=== PATIENT | female | born 2005 ===

== ENCOUNTER 2025-05-22 08:33 | Outpatient (AMB) | payer MEDICAID, SELFPAY ==
--- OUTSIDE RECORDS SUMMARY | 2025-05-22 09:05 | XMS_ITS | Encounter Summary ---
Author Organization [employer] Address [address] [place] [address] 7 [place] [address] Care Team Providers Care Pan Greaser Name Role Phone Patricia Bolaños MD Primary Care Provider [phone] Reason for Visit * Reason Onset Date Comments Med Refill 10/20/2022 Encounter Details Date Type Department Care Team ([facility] st Contact Info) Description 10/20/2022 Telephone [facility] CHC MED & PEDS 505 [place], [place] [phone] Patricia Bolaños MD 505 [place] [address] Med Refill Social History Tobacco Use Types Packs/Day Years Used Date Smoking Tobacco: Never Assessed Comments Unknown Sex and Gender Information Value Date Recorded Sex Assigned at Female 07/10/2022 10:18 AM EDT Legal Sex Female 10:18 AM EDT Gender Identity Other 02/01/2023 11:07 AM EDT Sexual Orientation Choose not to disclose 2021 10:18 AM EDT documented as of this encounter Miscellaneous Notes * Telephone Encounter - Kely Farrar - 10/20/2022 11:09 AM EST Tc from mother requesting med refill for medication amphetamine- dextroamphetamine XR (Adderall XR) 25 MG 24 hr capsule. documented in this encounter Plan of Treatment Not on file documented as of this encounter Visit Diagnoses Not on filedocumented in this encounter Care Teams Pan Greaser Relationship Specialty Start Date End Date Patricia Bolaños MD [address] [place] [address] PCP - General Family Medicine 06/06/13 documented as of this encounter
--- OUTSIDE RECORDS SUMMARY | 2025-05-22 09:05 | XMS_ITS | Encounter Summary ---
Author Organization [employer] Address 75 [facility] 7 [place] [address] Care Team Providers Care Blocker Hand Name Role Phone Patricia Bolaños MD Primary Care Provider [phone] Reason for Visit * Reason Onset Date Comments Med Refill 09/04/2023 Encounter Details Date Type Department Care Team ([facility] st Contact Info) Description 09/04/2023 Telephone [facility] CHC MED & PEDS 505 [place], [place] [phone] Patricia Bolaños MD 505 [place] [address] Med Refill Social History Tobacco Use Types Packs/Day Years Used Date Smoking Tobacco: Never Assessed Depression Answer Date Recorded Patient Health Questionnaire-9 Score 17 02/01/2023 Housing Stability Answer Date Recorded What is your housing situation today? I have louis mcrae 06/28/[address] you li ve. Do you have problems with any of the following? None of the above 06/28/2023 Food Insecurity Answer Date Recorded Within the past 12 months, y ou worried that your food would run out before you got money to buy more: Often true 06/28/2023 Within the past 12 months,th e food you bought just didn't last and you didn't have enough money to get more: Often true Transportation Answer Date Recorded In the past 12 months, has l ack of transportation kept you from medical appts, meetings, work or from getting things needed for daily living? No 06/28/2023 Utilities Answer Date Recorded In the past 12 months, has t he electric, gas, oil or water company threatened to shut off services in your home? No 06/28/2023 Depression Answer Date Recorded Patient Health Questionnaire-2 Score 4 02/01/2023 Comments Unknown Sex and Gender Information Value Date Recorded Sex Assigned at Female 07/10/2022 10:18 AM EDT Legal Sex Female 10:18 AM EDT Gender Identity Other 02/01/2023 11:07 AM EDT Sexual Orientation Choose not to disclose 2021 10:18 AM EDT documented as of this encounter Miscellaneous Notes * Telephone Encounter - Ana Garcia - 09/04/2023 2:10 PM EST TC from pt requesting medication refill. Medications needing refill : amphetamine-dextroamphetamine XR (Adderall XR) 25 MG 24 hr capsule To be sent to: [facility] - [place], [place] - [address] documented in this encounter Plan of Treatment Not on file documented as of this encounter Visit Diagnoses Not on filedocumented in this encounter Additional Health Concerns Assessment Noted Time PHQ-9 Depression Total Score: 17 023 11:26 AM EDT documented as of this encounter Care Teams Blocker Hand Relationship Specialty Start Date End Date Patricia Bolaños MD [address] [place] [address] PCP - General Family Medicine 06/06/13 documented as of this encounter
--- OUTSIDE RECORDS SUMMARY | 2025-05-22 09:05 | XMS_ITS | Encounter Summary ---
Author Organization [employer] Address 75 [facility] 7 [place] [address] Care Team Providers Care Decating Machine Operator Name Role Phone Patricia Bolaños MD Primary Care Provider [phone] Reason for Visit * Reason Onset Date Comments Med Refill 10/04/2023 Encounter Details Date Type Department Care Team ([facility] st Contact Info) Description 10/04/2023 Telephone [facility] CHC MED & PEDS 505 [place], [place] [phone] Patricia Bolaños MD 505 [place] [address] Med Refill Social History Tobacco Use Types Packs/Day Years Used Date Smoking Tobacco: Never Assessed Depression Answer Date Recorded Patient Health Questionnaire-9 Score 17 02/01/2023 Housing Stability Answer Date Recorded What is your housing situation today? I have louis mrcae 06/28/[address] you li [...] * Telephone Encounter - Ana Garcia - 10/04/2023 1:54 PM EST TC from pt requesting medication refill. Medications needing refill : amphetamine-dextroamphetamine XR (Adderall XR) 25 MG 24 hr capsule To be sent to: [facility] - [place], [place] - [address] documented in this encounter Plan of Treatment Not on file documented as of this encounter Visit Diagnoses Not on filedocumented in this encounter Additional Health Concerns Assessment Noted Time PHQ-9 Depression Total Score: 17 023 11:26 AM EDT documented as of this encounter Care Teams Decating Machine Operator Relationship Specialty Start Date End Date Patricia Bolaños MD [address] [place] [address] PCP - General Family Medicine 06/06/13 documented as of this encounter
--- OUTSIDE RECORDS SUMMARY | 2025-05-22 09:05 | XMS_ITS | Encounter Summary ---
Author Organization [employer] Address [address] [place] [address] 7 [place] [address] Care Team Providers Care Occupational Therapist Assistant Name Role Phone Patricia Bolaños MD Primary Care Provider [phone] Reason for Visit * Reason Comments Med Refill Encounter Details Date Type Department Care Team ([facility] st Contact Info) Description 06/05/2023 Refill [facility] CHC MED & PEDS 505 [place], [place] [phone] Patricia Bolaños MD 505 [place] [address] Attention deficit hyperactivity disorder (ADHD), predominantly inattentive type Social History Tobacco Use Types Packs/Day Years Used Date Smoking Tobacco: Never Assessed Depression Answer Date Recorded Patient Health Questionnaire-9 Score 17 02/01/2023 Depression Answer Date Recorded Patient Health Questionnaire-2 Score 4 02/01/2023 Comments Unknown Sex and Gender Information Value Date Recorded Sex Assigned at Female 07/10/2022 10:18 AM EDT Legal Sex Female 10:18 AM EDT Gender Identity Other 02/01/2023 11:07 AM EDT Sexual Orientation Choose not to disclose 2021 10:18 AM EDT documented as of this encounter Plan of Treatment Not on file documented as of this encounter Visit Diagnoses Diagnosis Attention deficit hyperactivity disorder (ADHD), predominantly inattentive type documented in this encounter Additional Health Concerns Assessment Noted Time PHQ-9 Depression Total Score: 17 023 11:26 AM EDT documented as of this encounter Care Teams Occupational Therapist Assistant Relationship Specialty Start Date End Date Patricia Bolaños MD 505 [place] [address] PCP - General Family Medicine 06/06/13 documented as of this encounter
--- OUTSIDE RECORDS SUMMARY | 2025-05-22 09:05 | XMS_ITS | Encounter Summary ---
Author Organization [employer] Address 75 [facility] 7t [place] [address] Care Team Providers Care Hoop Rolls Operator Name Role Phone Patricia Bolaños MD Primary Care Provider Reason for Visit * Reason Comments Med Refill Encounter Details Date Type Department Care Team ([facility] st Contact Info) Description 12/05/2023 Refill [facility] MEDICINE 230 [place], [place] [phone] Patricia Bolaños MD 505 [place] [address] Attention deficit hyperactivity disorder (ADHD), predominantly inattentive [...] documented as of this encounter Care Teams Hoop Rolls Operator Relationship Specialty Start Date End Date Patricia Bolaños MD 505 [place] [address] PCP - General Family Medicine 06/06/13 documented as of this encounter
--- OUTSIDE RECORDS SUMMARY | 2025-05-22 09:05 | XMS_ITS | Encounter Summary ---
Author Organization [employer] Address [address] [facility] 7t [place] [address] Care Team Providers Care Show Card Writer Name Role Phone Patricia Bolaños MD Primary Care Provider [phone] Reason for Visit * Reason Comments Med Refill Encounter Details Date Type Department Care Team ([facility] st Contact Info) Description 12/03/2023 Refill [facility] MEDICINE 230 [place] [address] Patricia Bolaños MD 505 [place] [address] Attention deficit hyperactivity disorder (ADHD), predominantly inattentive [...] documented as of this encounter Care Teams Show Card Writer Relationship Specialty Start Date End Date Patricia Bolaños MD 505 [place] [address] PCP - General Family Medicine 06/06/13 documented as of this encounter
--- OUTSIDE RECORDS SUMMARY | 2025-05-22 09:05 | XMS_ITS | Encounter Summary ---
Author Organization [employer] Address 75 [facility] 7t [place] [address] Care Team Providers Care Filter Tender Jelly Name Role Phone Patricia Bolaños MD Primary Care Provider [phone] Encounter Details Date Type Department Care Team ([facility] st Contact Info) Description 06/12/2024 Orders Only [facility] CHC MED & PEDS 505 [place], [place] [phone] Patricia Bolaños MD 505 [place], [place] [phone] Social History Tobacco Use Types Packs/Day Years [...] documented as of this encounter Care Teams Filter Tender Jelly Relationship Specialty Start Date End Date Patricia Bolaños MD [address] [place] [address] PCP - General Family Medicine 06/06/13 documented as of this encounter
--- OUTSIDE RECORDS SUMMARY | 2025-05-22 09:05 | XMS_ITS | Clinical Summary ---
Author Organization [employer] Address [address] [facility] 7t [place] [address] Care Team Providers Care Band Bias Machine Operator Name Role Phone Patricia Bolaños MD Primary Care Provider Allergies Active Allergy Reactions Criticality Noted Date Comments Oxcarbazepine Hives High 07/02/2013 Topiramate Hives 12/22/2015 Medications * This document contains information received from the source organization and may not represent a complete record from that organization. ibuprofen 600 MG tablet Take 1 tablet by mouth every 6 (six) hours if needed for pain. 01/20/20 17 Active ergocalciferol (Vitamin D2) 1.25 MG (88868 UT) capsule Take 1 capsule (1.25 mg) by mouth 1 (one) time per week. 12 capsule 02/06/20 23 Active Camrese 0.15-0.03 &0.01 MG tablet tablet TAKE 1 TABLET BY MOUTH EVERY DAY 91 tablet 3 05/08/20 23 Active Bacitracin-Polym yxin B (FT Double Antibiotic) 500-36571 UNIT/GM ointment APPLY TOPICALLY TWICE DAILY 28.4 g 1 10/09/19 25 Active clotrimazole (Lotrimin) 1 % cream APPLY TOPICALLY TWICE DAILY 30 g 1 10/09/19 25 Active amphetamine-dext roamphetamine XR (Adderall XR) 25 MG 24 hr capsuleIndicatio ns:Attention deficit hyperactivity disorder (ADHD), predominantly inattentive type TAKE 2 CAPSULES BY MOUTH EVERY DAY IN THE MORNING 60 capsule 04/28/20 25 Active traZODone (Desyrel) 50 MG tabletIndication s:Primary insomnia TAKE 1 TABLET BY MOUTH AT BEDTIME 30 tablet 3 04/28/20 25 Active traZODone (Desyrel) 50 MG tabletIndication s:Primary insomnia Take 1 tablet (50 mg) by mouth at bedtime. 30 tablet 3 12/03/19 25 025 Discontinued(R eorder (will not trigger notification to Pharmacy)) amphetamine-dext roamphetamine XR (Adderall XR) 25 MG 24 hr capsuleIndicatio ns:Attention deficit hyperactivity disorder (ADHD), predominantly inattentive type TAKE 2 CAPSULES BY MOUTH EVERY DAY IN THE MORNING 60 capsule 03/30/20 25 025 Discontinued(R eorder (will not trigger notification to Pharmacy)) Active Problems Problem Noted Date Diagnosed Date Class 3 severe obesity due t o excess calories without serious comorbidity with body mass index (BMI) of 60.0 to 69.9 in adult 02/25/2025 Assessment & Plan (02/25/2025 9:18 AM EDT): Will refer to bariatric surgery, continue low calorie diet, exercise as tolerated, will order tsh and a1c Attention deficit hyperactivity disorder 013 Bipolar disorder 07/02/2013 Encounters Date Type Department Care Team Description 04/28/2025 Refill [facility] MEDICINE 230 [place] [address] Patricia Bolaños MD Attention deficit hyperactivity disorder (ADHD), predominantly inattentive type; Primary insomnia 03/30/2025 Refill [facility] MED & PEDS 505 [place] [address] Patricia Bolaños MD Attention deficit hyperactivity disorder (ADHD), predominantly inattentive type 02/25/2025 9:00 AM EDT Telemedicine [facility] MED & PEDS 505 [place] [address] Austin Gee MD Weight gain (Primary Dx); Class 3 severe obesity due to excess calories without serious comorbidity with body mass index (BMI) of 60.0 to 69.9 in adult 02/25/2025 Travel 02/24/2025 Refill [facility] MEDICINE [address] [place] [address] Patricia Bolaños MD Attention deficit hyperactivity disorder (ADHD), predominantly inattentive type from Last 3 Months Immunizations Immunization Administration Dates Next Due DTaP, 5 pertussis antigens 09/22/2008,,03/24/2005,01/17,2004 HPV 9-Valent 12/20/2016,07/12/2016 Hep A, ped/adol, 2 dose 12/20/2016,06/02/2015 Hep B, Adolescent or Pediatric 5,01/17/2005,2004,09/09 Hib (HbOC) 06/01/2009, 5,01/17/2005,12/06 IPV 09/22/2008, 5,01/17/2005,12/06 Influenza injectable quadriv alent IIV4 with preservative 08/22/2017 Influenza injectable quadriv alent preservative free 11/08/2018,07/12/2016 MMR 09/22/2008,10/27/2005 Meningococcal MCV4P ACYW-135 07/12/2016 Pneumococcal Conjugate PCV 7 06/01/2006, 03/24/2005,01/17/2005,12/06 Tdap 07/12/2016 Varicella 07/23/2009,10/27/2005 Social History Tobacco Use Types Packs/Day Years [...] not to disclose 2021 10:18 AM EDT Last Filed Vital Signs Vital Sign Reading Time Taken Comments Blood Pressure 130/80 02/01/2023 11:40 AM EDT Pulse 84 02/01/2023 11:15 AM EDT Temperature 37 C (98.6 F) 02/01/2023 11:15 AM EDT Respiratory Rate 20 02/01/2023 11:15 AM EDT Oxygen Saturation 99% 02/01/2023 11:15 AM EDT Inhaled Oxygen Concentration - - Weight 144 kg (318 lb) 02/01/2023 11:15 AM EDT Height 158.8 cm (5' 2.5 ) 02/01/2023 11:15 AM ED T Body Mass Index 57.24 02/01/2023 11:15 AM EDT Plan of Treatment Health Maintenance Due Date Last Done Comments Chlamydia and Gonorrhea Screening 2004 HIV Screening 2004 Disability Screening 2004 Alcohol/Substance Use Screening 2016 Tobacco Screening 2016 Family Planning (PISQ) 2019 Meningococcal B Vaccine (1 of 2 - Standard) 2020 Hepatitis C Screening 2022 Depression Monitoring 08/04/2023 02/01/2023, 023 SDOH Screening 02/02/2024 02/01/2023 COVID-19 Vaccine ( - season) 2025 Influenza Vaccine (#1) 2025 9, 08/22/2017, 07/12/2016 DTaP/Tdap/Td Vaccines (7 - Td or Tdap) 07/12/2026 07/12/2016, 09/22/2008, 06/01/2006, Additional history exists Lipid Panel 02/02/2028 02/01/2023 Zoster Vaccines (1 of 2) 2054 RSV Patients and Patients Aged 60 years or older (1 - 1-dose 75+ series) 2079 Hepatitis B Vaccines Completed 03/24/2005, 01/17/2005, 2004, Additional history exists Pneumococcal Vaccine: Pediatrics (0 to 5 Years) and At-Risk Patients (6 to 49) Years Aged Out 06/01/2006, 03/24/2005, 01/17/2005, Additional history exists No longer eligible based on patient's age to complete this topic IPV Vaccines Completed 09/22/2008, 03/10, 01/17/2005, Additional history exists HIB Vaccines Completed 06/01/2009, 03/10, 01/17/2005, Additional history exists Meningococcal Vaccine Aged Out 07/12/2016 No lucina cassie eligible based on patient's age to complete this topic HPV Vaccines Completed 12/20/2016, 07/12/2016 Hepatitis A Vaccines Completed 12/20/2016, 06/02/20 15 RSV under 20 months Aged Out No longe r eligible based on patient's age to complete this topic Rotavirus Vaccines Aged Out No longer eligible based on patient's age to complete this topic Procedures Procedure Name Priority Date/Time Associated Diagnosis Comments LIPID PANEL, STANDARD Routine 02/01/2023 11:48 AM EDT Obesity without serious comorbidity with body mass index (BMI) greater than 99th percentile for age in pediatric patient, unspecified obesity type from Last 3 Months or Most Recently Relevant to Health Maintenance Results * (ABNORMAL) Lipid Panel, Standard (02/01/2023 11:48 AM EDT) Cholesterol, Total 172(H) <170 mg/dL [facility] [place] [facility] HDL Cholesterol 37(L) >45 mg/dL [facility] [place] [facility] Triglycerides 87 <90 mg/dL [facility] [place] [facility] LDL Cholesterol 116(H) <110 mg/dL (calc) [facility] [place] [facility] Comment: LDL-C is now calculated using the Ronald calculation, which is a validated novel method providing better accuracy than the Friedewald equation in the estimation of LDL-C. Alexi OTERO et al. SHEBA. 2013;310(19): 5821-7208 (http://education.myseekit.[employer]/faq/YZH855) Chol/HDLC Ratio 4.6 <5.0 (calc) [facility] [place] [facility] Non-HDL Cholesterol 135(H) <120 mg/dL (calc) [facility] [place] [facility] Comment: For patients with diabetes plus 1 major ASCVD risk factor, treating to a non-HDL-C goal of <100 mg/dL (LDL-C of <70 mg/dL) is considered a therapeutic option. Blood Venous blood specimen / Unknown 02/01/2023 11:48 AM EDT 02/01/2023 11:49 AM EDT Narrative [facility] - 02/02/2023 8:12 AM EDT FASTING:YES FASTING: YES us Patricia Bolaños MD LAB BLOOD ORDERABLES Final Re sult [facility] [address], [place] [address] [facility] [place] [facility] [address] [place] [address] from Last 3 Months or Most Recently Relevant to Health Maintenance [place] [place] [address] C3 Care Teams Band Bias Machine Operator Relationship Specialty Start Date End Date Patricia Bolaños MD 505 [place] [address] PCP - General Family Medicine 06/06/13
--- OUTSIDE RECORDS SUMMARY | 2025-05-22 09:06 | XMS_ITS | Encounter Summary ---
Author Organization [employer] Address [address] [facility] [address] 7t [place] [address] Care Team Providers Care Client Portfolio Manager Name Role Phone Patricia Bolaños MD Primary Care Provider [phone] Reason for Visit * Reason Onset Date Comments Med Refill 12/31/2024 Encounter Details Date Type Department Care Team ([facility] st Contact Info) Description 12/31/2024 Telephone [facility] MEDICINE 230 [place], [place] [phone] Patricia Bolaños MD 505 [place], [place] [phone] Med Refill Social History Tobacco Use Types [...] encounter Miscellaneous Notes * Telephone Encounter - Kimmy Swenson LPN - 12/31/2024 10:45 AM EDT Medication sent to [facility] on 12/30/24. * Telephone Encounter - Quan Batista - 12/31/2024 10:40 AM EDT TC from pt requesting medication refill. Medications needing refill : amphetamine-dextroamphetamine XR (Adderall XR) 25 MG 24 hr capsule To be sent to: [facility] - [place], [place] [facility] [address] [facility] documented in this encounter Plan of Treatment Not on file documented as of this encounter Visit Diagnoses Not on filedocumented in this encounter Additional Health Concerns Assessment Noted Time PHQ-9 Depression Total Score: 17 023 11:26 AM EDT documented as of this encounter Care Teams Client Portfolio Manager Relationship Specialty Start Date End Date Patricia Bolaños MD 505 [place] [address] PCP - General Family Medicine 06/06/13 documented as of this encounter
--- OUTSIDE RECORDS SUMMARY | 2025-05-22 09:06 | XMS_ITS | Encounter Summary ---
Author Organization [employer] Address 75 [facility] 7t [place] [address] Care Team Providers Care Driver Guard Name Role Phone Patricia Bolaños MD Primary Care Provider [phone] Reason for Visit * Reason Comments Med Refill Encounter Details Date Type Department Care Team ([facility] st Contact Info) Description 12/30/2024 Refill [facility] MEDICINE 230 [place], [place] [phone] Patricia Bolaños MD 505 [place] [address] Attention deficit hyperactivity disorder (ADHD), predominantly inattentive [...] documented as of this encounter Care Teams Driver Guard Relationship Specialty Start Date End Date Patricia Bolaños MD [address] [place] [address] PCP - General Family Medicine 06/06/13 documented as of this encounter
--- OUTSIDE RECORDS SUMMARY | 2025-05-22 09:06 | XMS_ITS | Encounter Summary ---
Author Organization [employer] Address 75 [facility] 7t [place] [address] Care Team Providers Care Animal Chiropractor Name Role Phone Patricia Bolaños MD Primary Care Provider [phone] Encounter Details Date Type Department Care Team ([facility] st Contact Info) Description 02/06/2023 Orders Only [facility] CHC MED & PEDS 505 [place], [place] [phone] Patricia Bolaños MD 505 [place], [place] [phone] Attention deficit hyperactivity disorder (ADHD), predominantly inattentive [...] not to disclose 2021 10:18 AM EDT COVID-19 Exposure Response Date Recorded In the last 10 days, have yo u been in contact with someone who was confirmed or suspected to have Coronavirus/COVID-19? No / Unsure 02/01/2023 10:45 AM EDT documented as of this encounter Plan of Treatment Not on file documented as of this encounter Visit Diagnoses Diagnosis Attention deficit hyperactivity disorder (ADHD), predominantly inattentive type documented in this encounter Additional Health Concerns Assessment Noted Time PHQ-9 Depression Total Score: 17 023 11:26 AM EDT documented as of this encounter Care Teams Animal Chiropractor Relationship Specialty Start Date End Date Patricia Bolaños MD [address] [place] [address] PCP - General Family Medicine 06/06/13 documented as of this encounter
--- OUTSIDE RECORDS SUMMARY | 2025-05-22 09:06 | XMS_ITS | Encounter Summary ---
Author Organization [employer] Address [address] [place] [address] 7 [place] [address] Care Team Providers Care Video Clerk Name Role Phone Patricia Bolaños MD Primary Care Provider Reason for Visit * Reason Comments Med Refill Encounter Details Date Type Department Care Team ([facility] st Contact Info) Description 12/22/2022 Refill [facility] CHC MED & PEDS [address] [place] [address] Patricia Bolaños MD [address] [place] [address] Attention deficit hyperactivity disorder (ADHD), predominantly inattentive [...] predominantly inattentive type documented in this encounter Care Teams Video Clerk Relationship Specialty Start Date End Date Patricia Bolaños MD [address] [place] [address] PCP - General Family Medicine 06/06/13 documented as of this encounter
--- OUTSIDE RECORDS SUMMARY | 2025-05-22 09:06 | XMS_ITS | Encounter Summary ---
Author Organization [employer] Address [address] [place] [address] Care Team Providers Care Medical Recruiter Name Role Phone Patricia Bolaños MD Primary Care Provider [phone] Reason for Visit * Reason Onset Date Comments Med Refill 04/01/2024 Encounter Details Date Type Department Care Team ([facility] st Contact Info) Description 04/01/2024 Telephone [facility] [address] [place], [place] [phone] Patricia Bolaños MD [address] [place], [place] [phone] Med Refill Social History Tobacco Use Types [...] encounter Miscellaneous Notes * Telephone Encounter - Zechariah Lewis - 04/01/2024 12:17 PM EDT TC from pt requesting medication refill. Medications needing refill : amphetamine-dextroamphetamine XR (Adderall XR) 25 MG 24 hr capsule To be sent to: [facility] - [place], [place] - [address] documented in this encounter Plan of Treatment Not on file documented as of this encounter Visit Diagnoses Not on filedocumented in this encounter Additional Health Concerns Assessment Noted Time PHQ-9 Depression Total Score: 17 023 11:26 AM EDT documented as of this encounter Care Teams Medical Recruiter Relationship Specialty Start Date End Date Patricia Bolaños MD [address] [place] [id number] PCP - General Family Medicine 06/06/13 documented as of this encounter
[2025-05-22 16:57] VITALS: BMI 58.5
--- NOTE | 2025-05-22 16:57 | A.OFFVIS_ITS ---
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 The patient has tried to lose weight with self diets and exercise. Wakes up: 12pm, sleeps: 4am [facility] Medical History (Updated 05/22/25 @ 17:02 by Tereso Gay MD) Insomnia ADHD Morbid obesity Surgical History (Updated 05/01/25 @ 14:19 by Belen Tong CMA) No history of previous surgery Family History (Updated 05/01/25 @ 11:53 by Belen Tong CMA) Mother Diabetes Mental health disorder Father No problems noted. Social History (Updated 05/01/25 @ 11:52 by Belen Tong CMA) Alcohol intake: current Alcohol intake frequency: holidays/special occasions only Patient Tobacco Use Status: Never used Tobacco Telehealth Telehealth Telehealth Platform: Telephone Location of provider rendering services: practice address Location of patient: address on file Patient Identification confirmed using: Name, : Yes Telehealth method: voice only Patient verbally consented to treatment: Yes Patient verbally consented to billing insurance company: Yes Patient informed of any privacy concerns related to visit: Yes Minutes spent on Phone/Video with Pt.: 60 Assessment & Plan Assessment & Plan (1) Morbid obesity: Code(s): E66.01 - Morbid (severe) obesity due to excess calories Category: Medical Plan: 1.? Plan for lap sleeve gastrectomy. If diaphragmatic or ventral hernias are present at time of surgery, these will be repaired laparoscopically as well. I emphasized the importance of close follow-up, adherence to instructions and good communication. The surgery does not replace the need to change your lifestlyle which is the cause of the obesity problem. The surgery provides the motivation to try again to change your lifestyle, it reduces the appetite and make the transition to a better lifestyle easier and doubles the amount of weight you would lose compared to doing the lifestyle change without the surgery. You will need to be on a liquid diet with protein shakes for 2 weeks before surgery to maximize weight loss and boost your nutritional status to recover better from surgery and also for the first two weeks after surgery to let the stomach heal before we introduce other foods. After the first 2 weeks we will introduce protein bars and soft foods like scrambled eggs, cottage cheese and yogurt and after the 6th week will introduce meat, fish and cooked vegetables in small amounts. Over time you should be able to eat everything in small amounts. Side effects like nausea, vomiting, heartburn or abdominal pain are not common in the practice unless you are not following in the practice. This operation requires lifetime commitment to following in our practice and communication with me. You will much less weight and experience side effects if you don?t communicate or not following in the practice. Complications are rare and in our practice is about 1/10 of the national average. However, you can develop bleeding that may require transfusion (hasn?t happened for year in the practice), you may from complications (we did not have any deaths in the practice) and infections. Infections are usually a result of breakdown in communication or not understanding or following directions correctly. They are difficult to treat, they can happen during the first 6 weeks, they may require to be in the hospital for weeks or even months, not being able to eat by mouth and you may have drains and surgeries to try and correct the issue. Other risks and complications include possible conversion to an open procedure, leaks, small bowel obstruction, blood clots, cardiac, or pulmonary complications, as nursing home complications such as ulcers, insufficient weight loss and vitamin deficiencies. 2.Nutritional counseling. Start with one premade PREMIER protein (buy at [employer], or [employer], or [employer]) shake (8oz of PREMIER and NOT the whole bottle) at 1pm-3pm, 1 protein bar (16gr Fit Crunch protein bars, buy at [employer] or [employer]) at 4pm-6pm, dinner at 7pm (10 forks of protein and 10 forks of salad/vegetables), another premade PREMIER protein shake (8oz of PREMIER and NOT the whole bottle) at 9pm-11pm, and one more Fit Crunch protein bar after dinner at midnight to 2am and another HALF Fit Crunch bar at 3am-4am So you do 2 protein shakes, 2.5 protein bars and one meal per day. Meal to include lean meat (beef, fish, pork, turkey, chicken), or guinean yogurt, or egg whites, or beans with a salad with olive oil and fruits (berries, pears, apples, kiwi). Avoid salt, breads, potatoes, rice, pasta, desserts. 3. Each shake would be drunk slowly, like coffee in a period of 2 hours. 4. Cut each bar in 4 pieces and eat each piece in 30min ?to make each bar last 2 hours. 5. I emphasized the importance of measuring accurately the food portion and measure it when serving the food in plate 6. The meal portions include 10 full-size forks of meat and 10 full-size forks of salad. You always eat the meat portion but you can replace up to 5 forks for salad/vegetables with rice, potatoes or pasta, or a fruit ?if you like. The less you do it the better weight loss will be. 7. One full-size fork is what it can be scooped on the fork without falling aside and not what can be bit with the fork. Use regular forks like those you find in a typical restaurant. 8.? Please buy the body composition scale we discussed and send me weight measurements as soon as possible and then once a week. Always include your diet and exercise plan. 9. Start walking outside daily, tracking calories with a goal of 300 calories per day, daily. Goal is to burn 2000 calories per week on exercise, which means either 300 calories daily, or 400 calories 5 days per week, or 500 calories 4 days per week, or 650 calories 3 days per week. 10. The best choice would be to purchase a stationary bike, elliptical or treadmill at home that can track calories. Let me know if you do so I can give you an exercise plan. 11.?It is important of avoiding and for at least 18 months postoperatively and has been discussed at the infosession. 12. Goal is to lose at least 1.5-2lbs per week 13. Goal to lose 10% of your weight before surgery, which is about 30lbs. Ultimate weight goal: 300lbs before surgery 14. Please follow the diet plan exactly without any change. If you don't like something about the plan or you feel hungry you need to communicate with me so I can help you revise the plan. You should not change the plan yourself 15. To be scheduled for EGD to assess the stomach's anatomy. The possibility of biopsies was discussed. Patient needs to avoid use of NSAIDs and aspirin for 1 week prior to EGD. You must be on liquids only the day before your endoscopy. Risks of perforation and bleeding was discussed with the patient. This will be an outpatient procedure with IV sedation. 16. As of tomorrow, please send me a picture of your meal plate after you measure it, but before you consume it. 17. Due to the potential counteraction with Adderall, I will start the patient at the lower 15mg of Phentermine. We discussed the potential side-effects of the Phentermine such as irritability, dry mouth, difficulty sleeping, dizziness, numbness in feet and high blood pressure. I asked her to get a blood pressure monitor and measure the blood pressure daily in the morning and evening. She needs to send the blood pressure readings daily and to call the office for blood pressure over 140/80 and she understands that. 18. Try to put an alarm to wake up at 9am, regardless of what you fall asleep at night and without napping in the afternoon, so you can start going to sleep earlier at night. Orders: Orders H Pylori Breath Test Today E66.01 - Morbid (severe) obesity due to excess calories Complete Blood Count Auto Diff Today E66.01 - Morbid (severe) obesity due to excess calories Lipid Panel Today E66.01 - Morbid (severe) obesity due to excess calories IRON PROFILE Today E66.01 - Morbid (severe) obesity due to excess calories Comprehensive Met. Panel Today E66.01 - Morbid (severe) obesity due to excess calories C Reactive Protein Today E66.01 - Morbid (severe) obesity due to excess calories Vitamin B1 Today E66.01 - Morbid (severe) obesity due to excess calories Vitamin A Today E66.01 - Morbid (severe) obesity due to excess calories TSH reflex Free T4 Today E66.01 - Morbid (severe) obesity due to excess calories Ferritin Today E66.01 - Morbid (severe) obesity due to excess calories XR chest 2V Today E66.01 - Morbid (severe) obesity due to excess calories ECG 12 lead EKG Today E66.01 - Morbid (severe) obesity due to excess calories Insulin Today E66.01 - Morbid (severe) obesity due to excess calories Hemoglobin A1c Today E66.01 - Morbid (severe) obesity due to excess calories Vitamin B12 and Folate Today E66.01 - Morbid (severe) obesity due to excess calories Zinc Today E66.01 - Morbid (severe) obesity due to excess calories Vitamin D 25-OH Total Today E66.01 - Morbid (severe) obesity due to excess calories US abdomen comp w elastography Today E66.01 - Morbid (severe) obesity due to excess calories FL upper GI w air Today E66.01 - Morbid (severe) obesity due to excess calories Referrals Behavioral Health Referral E66.01 - Morbid (severe) obesity due to excess calories Nutrition/Dietitian Referral E66.01 - Morbid (severe) obesity due to excess calories Medications: New phentermine must administer 2 hours after breakfast 15 mg PO DAILY 30 caps 0RF E66.01 - Morbid (severe) obesity due to excess calories
== END 2025-05-22 17:15 | disposition home or self-care (01) ==
LOC: HO.HBS 08:33
PROVIDERS: PCP Pediatrics; Visit Provider Surgery
DX: E66.01 Morbid (severe) obesity due to excess calories (principal); Z68.43 Body mass index [BMI] 50.0-59.9, adult
CPT/HCPCS: 99205

== ENCOUNTER 2025-06-04 09:31 | Outpatient (REF) | payer MEDICAID, SELFPAY ==
--- NOTE | ~2025-06-04 | XR_ITS ---
EXAMINATION: XR CHEST 2 VIEWS HISTORY: E66.01 - Morbid (severe) obesity due to excess calories COMPARISON: There are no prior studies available for comparison. FINDINGS: PA and lateral views of the chest are submitted. The lungs are expanded and clear. There is no pleural effusion, pneumothorax, or pulmonary vascular congestion. The heart is normal in size. The bones are intact. XR/XR chest 2V IMPRESSION: Normal examination of the chest. Electronically signed by: Ronal Rbiera MD 06/04/2025 10:26 AM EDT
[2025-06-04 09:48] LABS: MANUAL DIFF FLAG NO
[2025-06-04 09:56] LABS: Hematocrit 39.3 % (37.0-47.0); Hemoglobin 12.5 g/dl (12.0-16.0); Imm Gran Abs Auto 0.02 X10*3/uL (0.00-0.03); Imm Gran Pct Auto 0.3 % (0.0-0.4); Lymphocytes Absolute Auto 1.9 X10*3/uL (1.2-4.9); Mean Corpuscular HGB Conc 31.8 g/dl (31.0-35.0); Mean Corpuscular Hemoglobin 24.6 pg (27.0-33.0); Mean Corpuscular Volume 77.2 fL (80.0-98.0); NRBC Abs Auto 0.000 X10*3/uL (0.0-0.012); NRBC Pct Auto 0.0 /100WBC (0.0-0.2); Platelet Count 359 X10*3/uL (160-400); Red Blood Count 5.09 X10*6/uL (4.20-5.50); White Blood Count 6.1 X10*3/uL (4.8-10.8)
--- NOTE | 2025-06-04 09:59 | ECG_ITS ---
Test Reason : e66.01 Blood Pressure : */* mmHG Vent. Rate : 68 BPM Atrial Rate : 68 BPM P-R Int : 144 ms QRS Dur : 82 ms QT Int : 400 ms P-R-T Axes : 14 53 13 degrees QTcB Int : 425 ms Normal sinus rhythm with sinus arrhythmia Normal ECG No previous ECGs available Referred By: Tereso Gay Electronically Signed By: Jama Cassidy
[2025-06-04 10:33] LABS: Alanine Aminotransferase 22 U/L (0-31); Albumin Level 4.4 g/dL (3.5-5.0); Alkaline Phosphatase 61 U/L (39-117); Anion Gap 11 (12-20); Aspartate Amino Transferase 18 U/L (5-31); Blood Urea Nitrogen 13 mg/dL (9-16); Calcium 9.4 mg/dL (8.4-10.2); Carbon Dioxide 28 mmol/L (22-29); Chloride 107 mmol/L (96-108); Cholesterol 168 mg/dL (<200); Estimated Glomerular Filt Rate > 60; HDL Cholesterol 27 mg/dL (>40); Iron 47 mcg/dL (30-160); Percent Iron Saturation 18 % (15-50); Potassium 3.8 mmol/L (3.3-5.1); Sodium 142 mmol/L (135-145); Total Iron Binding Capacity 256 mcg/dL (228-428); Total Protein 7.9 g/dL (6.5-8.0); Triglycerides 96 mg/dL (<150); Unsaturated Iron Binding 209 ug/dL
[2025-06-04 10:59] LABS: Ferritin 87 ng/mL (10-122)
[2025-06-04 11:03] LABS: Folate 10.1 ng/mL (> or = 4.0); Vitamin B12 399 pg/mL (200-900)
== END 2025-06-04 09:32 | disposition home or self-care (01) ==
LOC: HO.XRAY 09:31
PROVIDERS: Internal Medicine; PCP Pediatrics; Visit Provider Surgery
DX: E66.01 Morbid (severe) obesity due to excess calories (principal)
CPT/HCPCS: 36415; 71046; 80053; 80061; 82306; 82607; 82728; 82746; 83036; 83525; 83540; 84425; 84443; 84590; 84630; 85025; 86140; 93005

== ENCOUNTER → 2025-06-04 09:59 | Outpatient (BNV) | payer MEDICAID, SELFPAY | PROVIDERS: PCP Pediatrics; Visit Provider Internal Medicine Cardiovascular Disease | DX: E66.01 Morbid (severe) obesity due to excess calories (principal); Z68.43 Body mass index [BMI] 50.0-59.9, adult | CPT/HCPCS: 93010 ==

== ENCOUNTER → 2025-06-04 10:06 | Outpatient (BNV) | payer MEDICAID, SELFPAY | PROVIDERS: PCP Pediatrics; Visit Provider Radiology Diagnostic Radiology | DX: E66.01 Morbid (severe) obesity due to excess calories (principal) | CPT/HCPCS: 71046 ==

== ENCOUNTER 2025-07-02 11:45 | Day surgery (SDC) | payer MEDICAID, SELFPAY ==
[2025-06-30 08:01] VITALS: BMI 58.5
--- NOTE | 2025-06-30 12:53 | HO.ANESPROP2 ---
Documented by User: Therese Yu NP 06/30/25 12:53 HPI - Anesthesia Eval Consult details Narrative: 19yo F for Upper Endoscopy BMI 58 PMFSH Active Problems Active Problems: All Active Problems Hypersomnolence (Acute) Iron deficiency (Acute) Vitamin B12 deficiency (Acute) Vitamin D deficiency (Acute) Insomnia (Acute) ADHD (Acute) Morbid obesity (Acute) Past Medical History Medical History Insomnia ADHD Morbid obesity Family History Family History Mother Diabetes Mental health disorder Father No problems noted. Surgical History Surgical History No history of previous surgery Social History Social History Are you a primary healthcare architect to a significant other at home: No Do you presently have visiting nurse or other home services: No Alcohol intake: current Alcohol intake frequency: does not drink Patient Tobacco Use Status: Never used Tobacco Second Hand Smoke Exposure: No Meds Allergies Allergy/AdvReac Type Severity Reaction Status Date / Time oxcarbazepine (From Allergy Unknown HIVES Verified 05/22/25 16:59 TRILEPTAL) Home Medications ?Medication ?Instructions ?Recorded ?Confirmed ?Last Taken ?Type dextroamphetamine-amphetamine 10 10 mg PO DAILY 05/01/25 06/30/25 Unknown History mg tablet (Adderall) trazodone 50 mg tablet 50 mg PO BEDTIME PRN Insomnia 05/01/25 06/30/25 Unknown History Exam Height,Weight and Vital Signs: Height 5 ft 3 in Weight 149.685 kg Assessment and Plan Assessment Anesthesia Assessment: Chart Reviewed Documented by User: Lyla Madrigal MD 07/02/25 13:43 PMFSH Past Medical History Medical History Insomnia ADHD Morbid obesity Family History Family History Mother Diabetes Mental health disorder Father No problems noted. Surgical History Surgical History No history of previous surgery History of Problems with Anesthesia: No Social History Social History Are you a primary healthcare architect to a significant other at home: No Do you presently have visiting nurse or other home services: No Alcohol intake: current Alcohol intake frequency: does not drink Patient Tobacco Use Status: Never used Tobacco Second Hand Smoke Exposure: No Meds Allergies Allergy/AdvReac Type Severity Reaction Status Date / Time oxcarbazepine (From Allergy Unknown HIVES Verified 05/22/25 16:59 TRILEPTAL) Home Medications ?Medication ?Instructions ?Recorded ?Confirmed ?Last Taken ?Type dextroamphetamine-amphetamine 10 10 mg PO DAILY 05/01/25 06/30/25 Unknown History mg tablet (Adderall) trazodone 50 mg tablet 50 mg PO BEDTIME PRN Insomnia 05/01/25 06/30/25 Unknown History Exam Airway Mallampati Class: III TM Dist: >3cm Neck ROM: Full Loose/Missing/Broken Teeth: No Heart: RRR Lungs: CTA Assessment and Plan Assessment Anesthesia Assessment: Anesthesia Plan Discussed Final Anesthetic Review History of Problems with Anesthesia: No NPO: Yes ASA Class: III Final Preanesthetic Review: Meds/Allgs Chart Reviewed, Consent Obtained/Reviewed and Anes Risks/Benef Reviewed Patient Risk: Intermediate Procedure Risk: Intermediate Anesthetic Plan Anesthetic Plan: MAC: Disposition: Standard PACU
[2025-07-02 12:07] VITALS: BP 150/90; PULSE 103; RESP 18; TEMP 37.4; O2SAT 98
[2025-07-02] MEDS: Lactated Ringers 1,000 ML 80 ML IVCONT (12:25)
[2025-07-02 12:32] LABS: UPreg QC Valid YES
--- NOTE | 2025-07-02 13:03 | MHC.SHP ---
Pre-Procedural Eval Section A - 24 Hr Update-Section A only Date of Service: 07/02/25 The patient is an INPATIENT: No The patient has been examined within 24 hours of the surgical procedure. The History & Physical has been completed within 30 days and I have reviewed it.: Yes Section B - Complete if H&P > 30 days Chief Complaint: Morbid (severe) obesity due to excess calories Relevant Family History (Specify if Yes): No Relevant Social History: None Present Medications: None Medical History: No relevant PMH History of Previous Operations: No relevant previous surgery Allergies: Allergies Allergy/AdvReac Type Severity Reaction Status Date / Time oxcarbazepine (From Allergy Unknown HIVES Verified 05/22/25 16:59 TRILEPTAL) Review of Systems Sugical H&P ROS: Negative: Constitution, Cardiovascular, Respiratory, Neurological, Psychiatric, Hem-Onc, Allergic/Immunologic, Gastrointestinal, Genitourinary, Musculoskeletal, Integumentary, Endocrine and Eyes/Ears/Nose/Throat Exam Surgical H&P Exam: Normal: HEENT, Normal: Heart, Normal: Lungs, Normal: Extremities, Normal: Abdomen, Normal: Skin and Normal: Neurological Plan Diagnosis/Plan: Unchanged (EGD to assess the stomach's anatomy. Risks of bleeding and perforation were discussed with the patient and she is in agreement with the plan.) I have reviewed the history and physical and performed a pertinent physical examination on my patient. No changes have occurred unless specified. Time Spent With Patient Time: Total time managing care of this patient today ____ minutes.
--- NOTE | 2025-07-02 13:05 | PM.OP ---
Brief Operative Note Date of Service: 07/02/25 Pre-op diagnosis: Morbid obesity Post-op diagnosis: same Procedure: PROCEDURE DATE: 07/02/2025 PREOPERATIVE DIAGNOSIS: Morbid obesity POSTOPERATIVE DIAGNOSIS: ?Same as above. PROCEDURE: Blwsszeg-ogktfl-frmrysynyjzl with biopsies Surgeon: ?Anthony Gay M.D.. Ph.D. Fisher Purse Seine: None ? Anesthesia: IV sedation Estimated blood loss: ?Minimal FINDINGS AND PROCEDURE: ? OPERATIVE INDICATIONS: ?The patient is a 19 year old female known to me who is interested in bariatric surgery. Based on this information I recommended an upper endoscopy to evaluate the patient's symptoms. Risks and complications of the surgery were discussed with the patient in advance particularly the possibility of perforation or bleeding that may require surgical intervention. The patient understood the risks and was in agreement with the plan. ? PROCEDURE: After informed consent was obtained by the patient, the patient was ?transferred to the Operating Room and was placed in the supine position.? After successful induction of IV sedation, a mouth block was inserted and the patient was placed in the left lateral decubitus position. An upper endoscopy was performed next, the oropharynx and esophagus appeared within the normal limits. There was no hiatal hernia. The z-line was smooth. Two biopsies were obtained from the distal esophagus 2-3 cm proximal to the GE junction and two additional biopsies from the GE junction. The stomach was entered and it appeared to be of normal size. There was no gastritis. There was no stricture or ulcer. A biopsy was obtained from the gastric fundus and the antrum. No significant bleeding was noted from any of the biopsy sites. Retroflexion of the scope confirmed the presence of a normal GE junction. The scope was then advanced into the duodenum which appeared to be normal as well. At that point the duodenum ?and the stomach were decompressed and the scope was withdrawn from the patient's mouth. The patient extubated and was transferred in stable condition to the Recovery Room for further care. I was present and performed all steps of the procedure. There were no residents to assist with this case. Anthony Gay M.D., Ph.D. Surgeon: Tereso Gay MD Anesthesia: MAC Was an Fisher Purse Seine used for this Procedure?: No Estimated blood loss (mL): 0 IV fluids (mL): 400 Urine output (mL): 0 (No Bobo to record output) Pathology: other (1) antrum x1, 2) fundus x1, 3) GE junction x2, 4) distal esophagus x2) Condition: stable Disposition: PACU
[2025-07-02 13:56] VITALS: BP 114/62; PULSE 84; RESP 18; TEMP 36.2; O2SAT 100
[2025-07-02 14:11] VITALS: BP 116/72; PULSE 76; RESP 20; O2SAT 97
[2025-07-02 14:25] VITALS: BP 126/90; PULSE 77; RESP 20; TEMP 36.5; O2SAT 95
== END 2025-07-02 14:59 | disposition home or self-care (01) ==
PROVIDERS: Nurse Practitioner; PCP Pediatrics; Visit Provider Surgery
PROC: 0DJ08ZZ Inspection of Upper Intestinal Tract, Via Natural or Artificial Opening Endoscopic (ICD-10-PCS; CPT 43235; principal; 2025-07-02 13:20)
DX: E66.01 Morbid (severe) obesity due to excess calories (principal); Z68.43 Body mass index [BMI] 50.0-59.9, adult; G47.00 Insomnia, unspecified; F90.9 Attention-deficit hyperactivity disorder, unspecified type; Z79.899 Other long term (current) drug therapy; Z88.8 Allergy status to other drugs, medicaments and biological substances
CPT/HCPCS: 43239; 81025; 88305; 88313; 88342; J2003; J2704

== ENCOUNTER → 2025-07-02 11:45 | Outpatient (BNV) | payer MEDICAID, SELFPAY | PROVIDERS: PCP Pediatrics; Visit Provider Surgery | DX: E66.01 Morbid (severe) obesity due to excess calories (principal); Z68.43 Body mass index [BMI] 50.0-59.9, adult | CPT/HCPCS: 43239 ==

== ENCOUNTER 2025-07-22 12:59 | Outpatient (AMB) | payer OTHER, SELFPAY ==
--- NOTE | 2025-07-22 13:00 | A.OFFWM_ITS ---
Intake Intake Visit Reasons: OV BH Intake Allergies oxcarbazepine (From TRILEPTAL) Allergy (Unknown, Verified 05/22/25 16:59) [facility] Medical History Insomnia ADHD Morbid obesity Surgical History No history of previous surgery Family History Mother Diabetes Mental health disorder Father No problems noted. Social History Are you a primary customer care consultant to a significant other at home: No Do you presently have visiting nurse or other home services: No Alcohol intake: current Alcohol intake frequency: does not drink Patient Tobacco Use Status: Never used Tobacco Second Hand Smoke Exposure: No Behavioral Health Assessment Weight Management Therapy Therapy Notes Details The patient is a 19-year-old female presenting for initial appointment to start behavioral health assessment as part of her preoperative evaluation for a surgical weight loss program. She was initially referred by her primary care provider. Presenting Concerns Referral Source WMP-Provider. Reason for referral Completion of behavioral health assessment as part of process for weight-loss surgery. Precipitating Event Obesity. Living Situation Current Living Situation Relative's/Guardian's [place] and Rent At risk of losing current housing? No Satisfied with current living situation? Yes Comments PT lives with her parents and 22 y/o sisters. Also 2 dogs and 2 cats. Social History Family history and relationship PT is single and have no children, she lives with her parents and older sister. PT is close to her family, but they're not close to any extended family. PT was in foster care at age 12 and younger. Parental/Familial print color operator obligations None. Developmental history and status Dyslexia and ADD, was on Adderall. She had an IEP during school. Continues taking Adderall. Social support Parents, sister. Community support None. Presybeterian/Spirituality None. Cultural/Ethnic information Mixed, dad Micronesian and black, and mom mixed and while. Legal Involvement and History Current or historical involvement with the legal system? None reported. Education Highest grade completed 9th grade. Preferred learning style Auditory Currently enrolled in educational program? No Interested in further educational program? Yes (Wants to get [employer].) Educational Interests/Skills Would like to get a job but first wants to work on control her Anxiety. Employment Employment Status Unemployed Wants help to find employment? No Meaningful activities Play videogames, working out. Financial Situation Describe current financial situation Occasional struggle Financial assistance? Food [place] and Disability Service Service? No Mental Health and Addiction Treatment Current/Past substance abuse? No Comments Alcohol: Haven't drink since January. Only on special occasions, 1-2 times at year. Cigarettes/Tobacco: None. Cannabis/Edibles: Edibles once in a while for sleep. Current/Past addictive behavior concerns? No Psychiatric history The patient is not currently engaged in counseling. She previously received mental health treatment until age 16, with diagnoses of depression, anxiety, sleep disturbances, and a history of ADD. She reports a prior psychiatric hospitalization during childhood but does not recall the specific age. The patient endorses ongoing memory difficulties. Her current psychiatric medications, prescribed by her primary care provider, Adderall 10 mg and trazodone 50 mg at bedtime. Medical and Physical Health Summary Additional Medical History not covered in history None aditional. Sexual History concerns None reported. Physical exam in the last year? No Pain Screening Current pain? No Pain in the last few months? Yes (Random knee pain.) Medications Is the patient compliant with medications? Yes Does the patient have Jama Guardian in place? Not applicable Does the patient use complimentary health approaches? No Assessment & Plan Assessment & Plan (1) ADHD: Code(s): F90.9 - Attention-deficit hyperactivity disorder, unspecified type (2) Pre-bariatric surgery psychological evaluation: Code(s): Z71.89 - Other specified counseling Plan The patient was not cleared today as the behavioral health assessment remains incomplete. The new patient packet has not yet been scanned; therefore, at the next appointment, the initial PHQ-9 and BES will be reviewed, and a new PHQ-9 will be administered. * Next appointment: 08/14/2025 at 11:00 am (office visit). [place] [address] Psy Diag Eval Patient Type New Diagnoses ADHD F90.9 Pre-bariatric surgery psychological evaluation Z71.89 Time Spent (min) 55
--- OUTSIDE RECORDS SUMMARY | 2025-07-22 15:39 | XMS_ITS | Encounter Summary ---
Author Organization [employer] Address [address] [place] [address] [address] [place] [address] Care Team Providers Care Insurance Investigator Name Role Phone Patricia Bolaños MD Primary Care Provider [phone] Reason for Visit * Reason Onset Date Comments Med Refill 09/04/2023 Encounter Details Date Type Department Care Team ([facility] Contact Info) Description 09/04/2023 Telephone [facility] [address] [place], [place] [phone] Patricia Bolaños MD [address] [place] [address] Med Refill Social History Tobacco Use Types Packs/Day Years Used Date Smoking Tobacco: Never Assessed Depression Answer Date Recorded Patient Health Questionnaire-9 Score 17 02/01/2023 Housing Stability Answer Date Recorded What is your housing situation today? I have louisjose de jesus mcrae 06/28/[address] you [...] Sex Female 10:18 AM EDT Gender Identity Not Listed 02/01/2023 11:07 AM EDT Sexual Orientation Choose not to disclose 2021 10:18 AM EDT documented as of this encounter Miscellaneous Notes * Telephone Encounter - Ana Garcia - 09/04/2023 2:10 PM EST TC from pt requesting medication refill. Medications needing refill : amphetamine-dextroamphetamine XR (Adderall XR) 25 MG 24 hr capsule To be sent to: [facility] - [place], [place] - [address] [facility] documented in this encounter Plan of Treatment Not on file documented as of this encounter Visit Diagnoses Not on filedocumented in this encounter Additional Health Concerns Assessment Noted Time PHQ-9 Depression Total Score: 17 023 11:26 AM EDT documented as of this encounter Care Teams Insurance Investigator Relationship Specialty Start Date End Date Patricia Bolaños MD [address] [place] [address] PCP - General Family Medicine 06/06/13 documented as of this encounter
--- OUTSIDE RECORDS SUMMARY | 2025-07-22 15:39 | XMS_ITS | Encounter Summary ---
Author Organization [employer] Address [address] [facility] [address] [place] [address] Care Team Providers Care Pushcart Peddler Name Role Phone Patricia Bolaños MD Primary Care Provider [phone] Reason for Visit * Reason Onset Date Comments Med Refill 12/31/2024 Encounter Details Date Type Department Care Team ([facility] st Contact Info) Description 12/31/2024 Telephone [facility] [address] [place] [address] Patricia Bolaños MD [address] [place], [place] [phone] Med Refill Social History Tobacco Use Types [...] 12/31/2024 10:45 AM EDT Medication sent to [facility] on 12/30/24. * Telephone Encounter - Quan Batista - 12/31/2024 10:40 AM EDT TC from pt requesting medication refill. Medications needing refill : amphetamine-dextroamphetamine XR (Adderall XR) 25 MG 24 hr capsule To be sent to: [facility] - [place], [place] - [address] [facility] documented in this encounter Plan of Treatment Not on file documented as of this encounter Visit Diagnoses Not on filedocumented in this encounter Additional Health Concerns Assessment Noted Time PHQ-9 Depression Total Score: 17 023 11:26 AM EDT documented as of this encounter Care Teams Pushcart Peddler Relationship Specialty Start Date End Date Patricia Bolaños MD [address] [place] [address] PCP - General Family Medicine 06/06/13 documented as of this encounter
--- OUTSIDE RECORDS SUMMARY | 2025-07-22 15:39 | XMS_ITS | Clinical Summary ---
Author Organization [employer] Address [address] [place] [address] Care Team Providers Care Durability Technician Name Role Phone Patricia Bolaños MD Primary Care Provider [phone] Allergies Active Allergy Reactions Criticality Noted Date Comments Oxcarbazepine Hives High 07/02/2013 Topiramate Hives 12/22/2015 Medications * This document contains information received from the source organization and may not represent a complete record from that organization. ibuprofen 600 MG tablet Take 1 tablet by mouth every 6 (six) hours if needed for pain. 01/20/20 17 Active ergocalciferol (Vitamin D2) 1.25 MG (65045 UT) capsule Take 1 capsule (1.25 mg) by mouth 1 (one) time per week. 12 capsule 02/06/20 23 Active Camrese 0.15-0.03 &0.01 MG tablet tablet TAKE 1 TABLET BY MOUTH EVERY DAY 91 tablet 3 05/08/20 23 Active Bacitracin-Polym yxin B (FT Double Antibiotic) 500-69031 UNIT/GM ointment APPLY TOPICALLY TWICE DAILY 28.4 g 1 10/09/19 25 Active clotrimazole (Lotrimin) 1 % cream APPLY TOPICALLY TWICE DAILY 30 g 1 10/09/19 25 Active traZODone (Desyrel) 50 MG tabletIndication s:Primary insomnia TAKE 1 TABLET BY MOUTH AT BEDTIME 30 tablet 3 04/28/20 25 Active amphetamine-dext roamphetamine XR (Adderall XR) 25 MG 24 hr capsuleIndicatio ns:Attention deficit hyperactivity disorder (ADHD), predominantly inattentive type TAKE 2 CAPSULES BY MOUTH EVERY DAY IN THE MORNING 60 capsule 06/28/20 Active amphetamine-dext roamphetamine XR (Adderall XR) 25 MG 24 hr capsuleIndicatio ns:Attention deficit hyperactivity disorder (ADHD), predominantly inattentive type TAKE 2 CAPSULES BY MOUTH EVERY DAY IN THE MORNING 60 capsule 06/02/20 25 025 Discontinued(R eorder (will not trigger [...] Encounters Date Type Department Care Team Description 06/26/2025 Refill [facility] [address] [place] [address] Patricia Bolaños MD Attention deficit hyperactivity disorder (ADHD), predominantly inattentive type 06/04/2025 Orders Only GENERIC EXTERNAL DATA DEPARTMENT Provider, Generic External Data 06/02/2025 Refill [facility] [address] [place] [address] Patricia Bolaños MD Attention deficit hyperactivity disorder (ADHD), predominantly inattentive type 06/01/2025 Refill [facility] [address] [place] [address] Patricia Bolaños MD Attention deficit hyperactivity disorder (ADHD), predominantly inattentive type 04/28/2025 Refill [facility] [address] [place] [address] Patricia Bolaños MD Attention deficit hyperactivity disorder (ADHD), predominantly inattentive type; Primary insomnia from Last 3 Months Immunizations Immunization Administration [...] 09/22/2008, 06/01/2006, Additional history exists Lipid Panel 06/04/2030 06/04/2025, 02/01/2023 Zoster Vaccines (1 of 2) 2054 [...] Procedure Name Priority Date/Time Associated Diagnosis Comments HEMATOXYLIN AND EOSIN STAIN Routine 07/02/2025 1:44 PM EDT HCG, QL, URINE Routine 07/02/2025 12:00 PM EDT XR CHEST 2 VIEWS Routine 06/04/2025 10:1 5 AM EDT VITAMIN B1 Routine 06/04/2025 9:46 AM EDT VITAMIN A Routine 06/04/2025 9:46 AM EDT ZINC Routine 06/04/2025 9:46 AM EDT VITAMIN B12/FOLATE, SERUM PANEL Routine 06/04/2025 9:46 AM EDT INSULIN Routine 06/04/2025 9:46 AM EDT VITAMIN D,25-OH,TOTAL,IA Routine 06/04/2025 9:46 AM EDT FERRITIN Routine 06/04/2025 9:46 AM EDT LIPID PANEL, STANDARD Routine 06/04/2025 9:46 AM EDT C-REACTIVE PROTEIN Routine 06/04/2025 9: 46 AM EDT IRON AND TOTAL IRON BINDING CAPACITY Routine 06/04/2025 9:46 AM EDT COMPREHENSIVE METABOLIC PANEL Routine 06/04/2025 9:46 AM EDT CBC WITH AUTO DIFFERENTIAL Routine 06/04/2025 9:46 AM EDT TSH W/REFLEX TO FT4 Routine 06/04/2025 9 :46 AM EDT Weight gain HEMOGLOBIN A1C Routine 06/04/2025 9:46 AM EDT Weight gain from Last 3 Months Results * Hematoxylin and Eosin Stain (07/02/2025 1:44 PM EDT) 07/02/2025 1:44 PM EDT 07/03/2025 8:28 AM EDT [facility] - 07/08/2025 11:28 AM EDT ----- ------- Name: Danica Acosta Age/Sex: 19/F : 2005 Unit#: [id number] Attend Dr: Tereso Gay MD Re07/02/25 Status: [facility] Location: [facility] Disch: ----- ------- SPEC : [id number] RECD: 07/03/25 STATUS: YEISON ZAPIEN NUM: [id number] DIEGO: 07/02/251344 SUBM DR: Tereso Gay MD ENTERED: 07/03/25 SP TYPE: Surgical OTHR DR: Patricia Bolaños MD ORDERED: HE Stain/9, Gross Micro L4/4, IHC/2, Special st. 2, H. pylori/2, AB/PAS Diagnosis A. Gastric antrum, biopsy: Gastric body mucosa with focal minimal chronic inactive inflammation; negative for H. pylori, intestinal metaplasia and dysplasia. B. Gastric fundus, biopsy: Gastric fundic mucosa with focal lamina propria hemorrhage and minimal chronic inactive gastritis; negative for H. pylori, intestinal metaplasia and dysplasia. C. Esophagogastric junction, biopsy: Squamous mucosa with minimal spongiosis, mild hyperplasia and intraepithelial eosinophils (up to 9 per high-power field) and columnar mucosa with mild chronic inflammation, consistent with esophagitis; negative for intestinal metaplasia and dysplasia. D. Esophagus, distal, biopsy: Squamous mucosa with rare intraepithelial eosinophils (up to 1 per high-power field) consistent with esophagitis; no columnar mucosa present. Clinical History Pre-Op Dx: Obesity Post-Op Dx: Normal EGD Microscopic Description Microscopic sections reviewed. H. pylori immunostains on B and C are negative. AB/PAS on C is negative for intestinal metaplasia. Controls stain appropriately. Material Received A. Antrum bx B. Fundus bx C. EG junction bx D. Distal esophagus bx Gross Description A. Received in formalin are 2 lawrence 1-2 mm soft tissue fragments, totally submitted in cassette A1. B. Received in formalin is 1 lawrence 3 mm soft tissue fragment, totally submitted in cassette B1. C. Received in formalin are 3 lawrence 1-3 mm soft tissue fragments, totally submitted in cassette C1. D. Received in formalin are 2 lawrence 2 3 mm soft tissue fragments, totally submitted in cassette D1. (JUAN M) CONTINUED ON NEXT PAGE ----- ------- Name: Danica Acosta Age/Sex: 19/F : 2005 Unit#: [id number] Attend Dr: Tereso Gay MD Re07/02/25 Status: [facility] Location: [facility] Disch: ----- ------- SPEC : [id number] RECD: 07/03/25 STATUS: YEISON ZAPIEN NUM: [id number] DIEGO: 07/02/[address] [facility] [address]: Tereso Gay MD ENTERED: 07/03/25 SP TYPE: Surgical OTHR DR: Patricia Bolaños MD ORDERED: HE Stain/9, Gross Micro L4/4, IHC/2, Special st. 2, H. pylori/2, AB/PAS Gross Description (Continued) Excision to formalin time: Immediate; total time in formalin: 12-24 hours Special studies ordered and performed: Immunostain for H. pylori on A1 and B1; AB/PAS stains on C1. IHC S/NG Disclaimer NOTE: Unless otherwise stated, all tissue is formalin-fixed and paraffin-embedded. Some or all of the immunohistochemical tests reported herein may have been developed and their performance characteristics determined by [facility]. They have not been cleared or approved by the U.S. Food and Drug Administration (FDA). However, the FDA has determined that such clearance or approval is not necessary. This laboratory is certified under the Clinical Laboratory Improvement Amendments of 1988 (CLIA) as qualified to perform high complexity clinical laboratory testing. Copies To: Patricia Bolaños MD [address] [place] [address] Tereso Gay MD [facility] [address] [place] [id number] ----- ------- Signed (signature on file) Monique Crews 07/08/25 1128 ----- ------- END OF REPORT Generic External Data Provider LAB BLOOD ORDERAB LES Final Result Performing Organization Address [facility] de Phone Number [facility] [address] [place] [phone] * HCG, Qualitative, Urine (07/02/2025 12:00 PM EDT) [facility] Urine NEGATIVE NEGATIVE [facility] Comment:This test was develo ped to detect early . Falsenegative results may occur after the 5th - 7th week ofpregnancy when using this test method. If clinicallyindicated, consider a serum hCG. 07/02/2025 12:0 0 PM EDT 07/02/2025 12:09 PM EDT us [employer] External Data Provider LAB URINE ORDERAB LES Final Result Performing Organization Address [facility] de Phone Number [facility] [address] [place] [phone] * XR Chest 2 Views (06/04/2025 10:15 AM EDT) Anatomical Region Laterality Modality Chest Radiographic Sherita ging 06/04/2025 10:1 5 AM EDT Narrative 06/04/2025 10:28 AM EDT [address] [address] XRay Report Signed Patient: Danica Acosta MR#: [id number] 0636 : 2005 Acct:[id number] Age/Sex: 19 / F ADM Date: 06/04/25 Loc: [facility] Attending Dr: Tereso Gay MD Ordering Physician: Tereso Gay MD Date of Service: 06/04/25 Procedure(s): XR chest 2V Accession Number(s): [id number] cc: Patricia Bolaños MD; Tereso Gay MD Reason for Exam: E66.01 - Morbid (severe) obesity due to excess calories EXAMINATION: XR CHEST 2 VIEWS HISTORY: E66.01 - Morbid (severe) obesity due to excess calories COMPARISON: There are no prior studies available for comparison. FINDINGS: PA and lateral views of the chest are submitted. The lungs are expanded and clear. There is no pleural effusion, pneumothorax, or pulmonary vascular congestion. The heart is normal in size. The bones are intact. XR/XR chest 2V IMPRESSION: Normal examination of the chest. Electronically signed by: Ronal Ribera MD 06/04/2025 10:26 AM EDT Dictated By: Ronal Ribera MD Signed By: <Electronically signed by Ronal Ribera MD in OV> 06/04/25 1026 DD/ 1015 TD/TT: 06/04/25 1021 Client Hr Manager: Procedure Note Donotuseinterpreter, Image - 06/04/[address] [address] XRay Report Signed Patient: Danica AcostaMR#: [id number] 0636 : 2005Acct:[id number] Age/Sex: 19 / FADM Date: 06/04/25 Loc: [facility] Attending Dr: Tereso Gay MD Ordering Physician: Tereso Gay MD Date of Service: 06/04/25 Procedure(s): XR chest 2V Accession Number(s): [id number] cc: Patricia Bolaños MD; Tereso Gay MD Reason for Exam: E66.01 - Morbid (severe) obesity due to excess calories EXAMINATION: XR CHEST 2 VIEWS HISTORY: E66.01 - Morbid (severe) obesity due to excess calories COMPARISON: There are no prior studies available for comparison. FINDINGS: PA and lateral views of the chest are submitted. The lungs are expanded and clear. There is no pleural effusion, pneumothorax, or pulmonary vascular congestion. The heart is normal in size. The bones are intact. XR/XR chest 2V IMPRESSION: Normal examination of the chest. Electronically signed by: Ronal Ribera MD 06/04/2025 10:26 AM EDT Dictated By: Ronal Ribera MD Signed By: <Electronically signed by Ronal Ribera MD in OV> 06/04/25 1026 DD/ 1015 TD/TT: 06/04/25 1021 Client Hr Manager: [facility] External Provider IMG XR PROCEDURES Final Result * (ABNORMAL) Vitamin D, 25-Hydroxy, Total, Immunoassay (06/04/2025 9:46 AM EDT) Vitamin D 25-OH Total 14.6(L) >30 ng/mL [facility] Comment: Health Based Reference Values*< 20 ng/mL Llcrrhbgc70-84 ng/mL Insufficient> 30 ng/mL Sufficient*Tobi REYNOLDS. N Engl J Med. 2007;357:266-280There is no well-established upper level of normal vitamin Dlevels. Some laboratories use 50 ng/mL as an upper limit ofnormal. However, toxicity is patient-dependent and may occurat any level. Careful correlation with the patient'spresentation is necessary and, if there is concern forvitamin D toxicity, treatment should be consideredirrespective of the serum level.Care must be taken in interpreting Vitamin D results fromdifferent laboratories and methodologies. Published datademonstrated that results from patients undergoinghemodialysis may show a negative bias when tested withvarious automated 25-OH vitamin D assays when compared toLC-MS/MS.When testing samples from patients whose predominant form ofVitamin D is Vitamin D2, such as patients receiving VitaminD2 supplementation, results that are subtherapeutic shouldbe confirmed with another method such as LC-MS/MS. 06/04/2025 9:46 AM EDT 06/04/2025 9:46 AM EDT Generic External Data Provider LAB BLOOD ORDERAB LES Final Result Performing Organization Address [facility] Co de Phone Number [facility] [address] [place] [phone] * Vitamin B12 (Cobalamin) and Folate Panel, Serum (06/04/2025 9:46 AM EDT) Vitamin B12 399 200 - 900 pg/mL [facility] Comment:NORMAL 200-900 PG/ML INDETERMINATE 160-199 PG/ML DEFICIENT < 160 PG/ML Folate 10.1 > or = 4.0 ng/mL [facility] Comment:Reference Values:> o r = 4.0 ng/mL< 4.0 ng/mL suggests folate deficiency Methotrexate, aminopterin and folinic acid(leucovorin) are chemotherapeutic agents whose molecularstructures are similar to folate; therefore, the Architectfolate assay cannot be used for patients using these drugs. 06/04/2025 9:46 AM EDT 06/04/2025 9:46 AM EDT us Generic External Data Provider LAB BLOOD ORDERAB LES Final Result Performing Organization Address [facility] Co de Phone Number [facility] [address] [place] [phone] * TSH W/Reflex to FT4 (06/04/2025 9:46 AM EDT) TSH reflex Free T4 2.44 0.32 - 4.0 uIU/mL [facility] Blood Venous blood specimen / Unknown 06/04/2025 9:46 AM EDT 06/04/2025 9:46 AM EDT Austin Atkinson MD LAB BLOOD ORDERABL ES Final Result [facility] [address] [place] [phone] * (ABNORMAL) CBC auto differential (06/04/2025 9:46 AM EDT) White Blood Count 6.1 4.8 - 10.8 X10*3/uL [facility] Red Blood Count 5.09 4.20 - 5.50 X10*6/uL [facility] Hemoglobin 12.5 12.0 - 16.0 g/dl [facility] Hematocrit 39.3 37.0 - 47.0 % [facility] Mean Corpuscular Volume 77.2(L) 80.0 - 98.0 fL [facility] Mean Corpuscular Hemoglobin 24.6(L) 27.0 - 33.0 pg [facility] Mean Corpuscular HGB Conc 31.8 31.0 - 35.0 g/dl [facility] Red Cell Distribution Width 13.6 11.0 - 16.0 % [facility] Platelet Count 359 160 - 400 X10*3/uL [facility] Mean Platelet Volume 9.7 9.4 - 12.3 fL [facility] Neutrophils Percent Auto 58.9 45 - 73 % [facility] Imm Gran Pct Auto 0.3 0.0 - 0.4 % [facility] Lymphocytes Percent Auto 31.0 20 - 40 % [facility] Monocytes Percent Auto 7.8 2 - 11 % [facility] Eosinophils Percent Auto 1.7 0 - 4 % [facility] Basophils Percent Auto 0.3 0 - 2 % [facility] NRBC Pct Auto 0.0 0.0 - 0.2 /100WBC [facility] Neutrophils Absolute Auto 3.6 2.0 - 8.3 x10*3/uL [facility] Imm Gran Abs Auto 0.02 0.00 - 0.03 X10*3/uL [facility] Lymphocytes Absolute Auto 1.9 1.2 - 4.9 X10*3/uL [facility] Monocytes Absolute Auto 0.5 0.1 - 1.2 X10*3/uL [facility] Eosinophils Absolute Auto 0.1 0.0 - 0.4 X10*3/uL [facility] Basophils Absolute Auto 0.0 0.0 - 0.2 X10*3/uL [facility] NRBC Abs Auto 0.000 0.0 - 0.012 X10*3/uL [facility] 06/04/2025 9:46 AM EDT 06/04/2025 9:46 AM EDT us Generic External Data Provider LAB BLOOD ORDERAB LES Final Result Performing Organization Address [facility]/ZIP Co de Phone Number [facility] [address] [place] [phone] * Iron And Total Iron Binding Capacity (06/04/2025 9:46 AM EDT) Iron 47 30 - 160 mcg/dL [facility] Total Iron Binding Capacity 256 228 - 428 mcg/dL [facility] Percent Iron Saturation 18 15 - 50 % [facility] Unsaturated Iron Binding 209 ug/dL [facility] 06/04/2025 9:46 AM EDT 06/04/2025 9:46 AM EDT us Generic External Data Provider LAB BLOOD ORDERAB LES Final Result Performing Organization Address City/[facility]/ZIP Co de Phone Number [facility] [address] [place] [phone] * Insulin (06/04/2025 9:46 AM EDT) Insulin 17 2 - 29 uU/mL [facility] Comment:This test was perfor med using the Goddard chemiluminescentmethod. Values obtained from different assay methods cannot beused interchangeably. This insulin assay shows a possiblecross-reactivity with antibodies generated against insulin(immunoreactive insulin and some patients treated withbovine or porcine insulin). Insulin levels may be measuredlower in patients with insulin autoimmune syndrome orfamilial high pro-insulinemia. 06/04/2025 9:46 AM EDT 06/04/2025 9:46 AM EDT Generic External Data Provider LAB BLOOD ORDERAB LES Final Result Performing Organization Address [facility] Co de Phone Number [facility] [address] [place] [phone] * Zinc (06/04/2025 9:46 AM EDT) Zinc 70 60 - 130 mcg/dL [facility] Comment:This test was develo ped and its analytical performancecharacteristics have been determined by [employer] [place], [place]. It hasnot been cleared or approved by the U.S. Food and DrugAdministration. This assay has been validated pursuantto the CLIA regulations and is used for clinicalpurposes.THIS TEST WAS PERFORMED AT:[employer]/[id number] [place] [address]WAKANRVMAY ROJAS MD,PHD 06/04/2025 9:46 AM EDT 06/04/2025 9:46 AM EDT us Generic External Data Provider LAB BLOOD ORDERAB LES Final Result Performing Organization Address [facility] Co de Phone Number [facility] [address] [place] [phone] * (ABNORMAL) Vitamin A (06/04/2025 9:46 AM EDT) Pathologist [facility] Vitamin A (Retinol) 24(A) 38 - 98 mcg/dL [facility] Comment:Vitamin supplementat ion within 24 hours prior toblood draw may affect the accuracy of the results.This test was developed and its analytical performancecharacteristics have been determined by [employer] [place], [place]. It hasnot been cleared or approved by the U.S. Food and DrugAdministration. This assay has been validated pursuantto the CLIA regulations and is used for clinicalpurposes.THIS TEST WAS PERFORMED AT:[employer]/[facility] [place] [address]UJONTWEMAY ROJAS MD,PHD 06/04/2025 9:46 AM EDT 06/04/2025 9:46 AM EDT Generic External Data Provider LAB BLOOD ORDERAB LES Final Result Performing Organization Address City/[facility]/ZIP Co de Phone Number [facility] [address] [place] [phone] * (ABNORMAL) C-reactive Protein (06/04/2025 9:46 AM EDT) [facility] C Reactive Protein 3.58(H) < or = 0.50 mg/dL [facility] 06/04/2025 9:46 AM EDT 06/04/2025 9:46 AM EDT Generic External Data Provider LAB BLOOD ORDERAB LES Final Result Performing Organization Address City/[facility]/ZIP Co de Phone Number [facility] [address] [place] [phone] * Vitamin B1 (06/04/2025 9:46 AM EDT) [facility] Vitamin B1 10 8 - 30 nmol/L [facility] Comment:Vitamin supplementat ion within 24 hours prior toblood draw may affect the accuracy of the results.This test was developed and its analytical performancecharacteristics have been determined by [employer] [place], [place]. It hasnot been cleared or approved by the U.S. Food and DrugAdministration. This assay has been validated pursuantto the CLIA regulations and is used for clinicalpurposes.THIS TEST WAS PERFORMED AT:[employer]/[facility] [place] [address]LHCHJJVMAY ROJAS MD,PHD 06/04/2025 9:46 AM EDT 06/04/2025 9:46 AM EDT us Generic External Data Provider LAB BLOOD ORDERAB LES Final Result Performing Organization Address [facility]/ZIP Co de Phone Number [facility] [address] [place] [phone] * Hemoglobin A1c (06/04/2025 9:46 AM EDT) Hemoglobin A1c 5.3 <6.0 % [facility] Comment:Hemoglobin A1C Refer ence Range Adults: 4.8 - 6.0 % Non diabetic: < 6.0 % Goal: < 7.0 %Additional Action Suggested: > 8.0 %Note: Hemoglobin A1c results are invalid for patients with abnormal amounts of HbF. Blood transfusions may impact the HbA1c concentration in the patient sample. Estimated Average Glucose 105 mg/dL [facility] Comment:eAG = Estimated ave rage glucose which is %A1C expressed asaverage glucose, using the formula of the M6N-LikvkgnAngcwrr Glucose study (ADAG), Diabetes Care, Vol.31,#8,Aug. 2007 Blood Venous blood specimen / Unknown 06/04/2025 9:46 AM EDT 06/04/2025 9:46 AM EDT us Austin Atkinson MD LAB BLOOD ORDERABL ES Final Result Performing Organization Address [facility]/ZIP Co de Phone Number [facility] [address] [place] [phone] * Ferritin (06/04/2025 9:46 AM EDT) Ferritin 87 10 - 122 ng/mL [facility] 06/04/2025 9:46 AM EDT 06/04/2025 9:46 AM EDT us Generic External Data Provider LAB BLOOD ORDERAB LES Final Result Performing Organization Address City/[facility]/ZIP Co de Phone Number [facility] [address] [place] [phone] * (ABNORMAL) Lipid Panel, Standard (06/04/2025 9:46 AM EDT) Pathologist [facility] Triglycerides 96 <150 mg/dL [facility] Comment:Desirable Triglyceri de: less than 150 mg/dLBorderline High Triglyceride 150-199 mg/dLHigh Triglyceride: 200-499 mg/dLVery High Triglyceride: greater than or equal to 5OO mg/dL Cholesterol 168 <200 mg/dL [facility] Comment:Desirable Cholestero l: less than 200 mg/dLBorderline High Cholesterol: 200-239 mg/dLHigh Cholesterol: greater than 239 mg/dL LDL Cholesterol Calculated 122(H) <100 mg/dL [facility] Comment:Desirable LDL: less than 100 mg/dLNear Optimal/Above Optimal LDL: 110- 129 mg/dLBorderline High LDL: 130-159 mg/dLHigh LDL: 160-189 mg/dLVery High LDL: greater than or equal to 190 mg/dL HDL Cholesterol 27(L) >40 mg/dL [facility] Comment:Desirable HDL: great er than 40 mg/dL Note: This HDL assay may give artificially low results in patients with liver disease. 06/04/2025 9:46 AM EDT 06/04/2025 9:46 AM EDT us Generic External Data Provider LAB BLOOD ORDERAB LES Final Result Performing Organization Address City/[facility]/ZIP Co de Phone Number [facility] [address] [place] [phone] * (ABNORMAL) Comprehensive Metabolic Panel (06/04/2025 9:46 AM EDT) Sodium 142 135 - 145 mmol/L [facility] Potassium 3.8 3.3 - 5.1 mmol/L [facility] Chloride 107 96 - 108 mmol/L [facility] Carbon Dioxide 28 22 - 29 mmol/L [facility] Anion Gap 11(L) 12 - 20 [facility] Urea Nitrogen (BUN) 13 9 - 16 mg/dL [facility] Creatinine, Serum 0.66 0.5 - 1.4 mg/dL [facility] Estimated Glomerular Filt Rate >60 [facility] Comment:Chronic Kidney Disea se: Estimated GFR < 60 mL/min/[id number] Kidney Disease: Estimated GFR < 15 mL/min/1.73m2 Glucose 94 60 - 115 mg/dL [facility] Calcium 9.4 8.4 - 10.2 mg/dL [facility] Bilirubin, Total 0.4 0.0 - 1.0 mg/dL [facility] Aspartate Amino Transferase 18 5 - 31 U/L [facility] Alanine Aminotransferase 22 0 - 31 U/L [facility] Total Protein 7.9 6.5 - 8.0 g/dL [facility] Albumin Level 4.4 3.5 - 5.0 g/dL [facility] Alkaline Phosphatase 61 39 - 117 U/L [facility] 06/04/2025 9:46 AM EDT 06/04/2025 9:46 AM EDT us Generic External Data Provider LAB BLOOD ORDERAB LES Final Result [facility] [address] [place] [address] [phone] from Last 3 Months Insurance [facility] C3 Care Teams Durability Technician Relationship Specialty Start Date End Date Patricia Bolaños MD [address] [place] [address] PCP - General Family Medicine 06/06/13
--- OUTSIDE RECORDS SUMMARY | 2025-07-22 15:39 | XMS_ITS | Encounter Summary ---
Author Organization [email or web address] Address [address] [place] [address] 7 [place] [address] Care Team Providers Care Clothing Sales Assistant Name Role Phone Patricia Bolaños MD Primary Care Provider [phone] Reason for Visit * Reason Onset Date Comments Med Refill 10/04/2023 Encounter Details Date Type Department Care Team ([facility] st Contact Info) Description 10/04/2023 Telephone [facility] MED & PEDS [address] [place], [place] [phone] Patricia Bolaños MD [address] [place] [address] Med Refill Social History Tobacco Use Types [...] 24 hr capsule To be sent to: [facility] - [place], [place] - [address] [facility] documented in this encounter Plan of Treatment Not on file documented as of this encounter Visit Diagnoses Not on filedocumented in this encounter Additional Health Concerns Assessment Noted Time PHQ-9 Depression Total Score: 17 023 11:26 AM EDT documented as of this encounter Care Teams Clothing Sales Assistant Relationship Specialty Start Date End Date Patricia Bolaños MD [address] [place] [address] PCP - General Family Medicine 06/06/13 documented as of this encounter
--- OUTSIDE RECORDS SUMMARY | 2025-07-22 15:39 | XMS_ITS | Encounter Summary ---
Author Organization [employer] Address [address] [place] [address] Care Team Providers Care Tuckpointer Cleaner Caulker Name Role Phone Patricia Bolaños MD Primary Care Provider [phone] Reason for Visit * Reason Onset Date Comments Med Refill 10/20/2022 Encounter Details Date Type Department Care Team ([facility] st Contact Info) Description 10/20/2022 Telephone [facility] MED & PEDS [address] [place], [place] [phone] Patricia Bolaños MD [address] [place] [address] Med Refill Social History Tobacco Use Types [...] on filedocumented in this encounter Care Teams Tuckpointer Cleaner Caulker Relationship Specialty Start Date End Date Patricia Bolaños MD [address] [place] [phone] PCP - General Family Medicine 06/06/13 documented as of this encounter
--- OUTSIDE RECORDS SUMMARY | 2025-07-22 15:39 | XMS_ITS | Encounter Summary ---
Author Organization [employer] Address [address] [place] [address] 7 [place] [address] Care Team Providers Care Pricing Clerk Name Role Phone Patricia Bolaños MD Primary Care Provider [phone] Encounter Details Date Type Department Care Team ([facility] st Contact Info) Description 02/06/2023 Orders Only [facility] MED & PEDS [address] [place], [place] [phone] Patricia Bolaños MD [address] [place] [address] Attention deficit hyperactivity disorder (ADHD), predominantly inattentive [...] documented as of this encounter Care Teams Pricing Clerk Relationship Specialty Start Date End Date Patricia Bolaños MD [address] [place] [address] PCP - General Family Medicine 06/06/13 documented as of this encounter
--- OUTSIDE RECORDS SUMMARY | 2025-07-22 15:39 | XMS_ITS | Encounter Summary ---
Author Organization [employer] Address [address] [place] [address] Care Team Providers Care Promotion Producer Name Role Phone Patricia Bolaños MD Primary Care Provider [phone] Reason for Visit * Reason Comments Med Refill Encounter Details Date Type Department Care Team ([facility] st Contact Info) Description 06/05/2023 Refill [facility] MED & PEDS [address] [place], [place] [phone] Patricia Bolaños MD [address] [place], [place] [phone] Attention deficit hyperactivity disorder (ADHD), predominantly inattentive [...] documented as of this encounter Care Teams Promotion Producer Relationship Specialty Start Date End Date Patricia Bolaños MD [address] [place] [address] PCP - General Family Medicine 06/06/13 documented as of this encounter
--- OUTSIDE RECORDS SUMMARY | 2025-07-22 15:39 | XMS_ITS | Encounter Summary ---
Author Organization [employer] Address [address] [place] [address] 7 [place] [address] Care Team Providers Care Fireproof Door Maker Name Role Phone Patricia Bolaños MD Primary Care Provider [phone] Encounter Details Date Type Department Care Team ([facility] st Contact Info) Description 06/12/2024 Orders Only [facility] MED & PEDS [address] [place], [place] [phone] Patricia Bolaños MD [address] [place] [address] Social History Tobacco Use Types Packs/Day Years [...] documented as of this encounter Care Teams Fireproof Door Maker Relationship Specialty Start Date End Date Patricia Bolaños MD [address] [place] [address] PCP - General Family Medicine 06/06/13 documented as of this encounter
--- OUTSIDE RECORDS SUMMARY | 2025-07-22 15:39 | XMS_ITS | Encounter Summary ---
Author Organization [employer] Address [address] [facility] 7 [place] [address] Care Team Providers Care Sander Portable Machine Name Role Phone Patricia Bolaños MD Primary Care Provider [phone] Reason for Visit * Reason Comments Med Refill Encounter Details Date Type Department Care Team ([facility] st Contact Info) Description 12/30/2024 Refill [facility] MEDICINE [address] [place] [address] Patricia Bolaños MD [address] [place] [address] Attention deficit hyperactivity disorder (ADHD), predominantly inattentive [...] documented as of this encounter Care Teams Sander Portable Machine Relationship Specialty Start Date End Date Patrciia Bolaños MD [address] [place] [address] PCP - General Family Medicine 06/06/13 documented as of this encounter
--- OUTSIDE RECORDS SUMMARY | 2025-07-22 15:39 | XMS_ITS | Encounter Summary ---
Author Organization [employer] Address [address] [facility] 7 [place] [address] Care Team Providers Care Relay Checker Name Role Phone Patricia Bolaños MD Primary Care Provider [phone] Reason for Visit * Reason Onset Date Comments Med Refill 04/01/2024 Encounter Details Date Type Department Care Team ([facility] st Contact Info) Description 04/01/2024 Telephone [facility] MEDICINE [address] [place] [address] Patricia Bolaños MD [address] [place], [place] [phone] Med Refill Social History Tobacco Use Types [...] 24 hr capsule To be sent to: [facility] - [place], [place] - [address] [facility] documented in this encounter Plan of Treatment Not on file documented as of this encounter Visit Diagnoses Not on filedocumented in this encounter Additional Health Concerns Assessment Noted Time PHQ-9 Depression Total Score: 17 023 11:26 AM EDT documented as of this encounter Care Teams Relay Checker Relationship Specialty Start Date End Date Patricia Bolaños MD [address] [place] [address] PCP - General Family Medicine 06/06/13 documented as of this encounter
--- OUTSIDE RECORDS SUMMARY | 2025-07-22 15:39 | XMS_ITS | Encounter Summary ---
Author Organization [employer] Address [address] [place] [address] Care Team Providers Care Pmo Consultant Name Role Phone Patricia Bolaños MD Primary Care Provider [phone] Reason for Visit * Reason Comments Med Refill Encounter Details Date Type Department Care Team ([facility] st Contact Info) Description 12/22/2022 Refill [facility] MED & PEDS [address] [place], [place] [phone] Patricia Bolaños MD [address] [place] [address] Attention deficit hyperactivity disorder (ADHD), predominantly inattentive [...] type documented in this encounter Care Teams Pmo Consultant Relationship Specialty Start Date End Date Patricia Bolaños MD [address] [place] [address] PCP - General Family Medicine 06/06/13 documented as of this encounter
--- OUTSIDE RECORDS SUMMARY | 2025-07-22 15:39 | XMS_ITS | Encounter Summary ---
Author Organization [employer] Address [address] [facility] 7 [place] [address] Care Team Providers Care Grease Press Helper Name Role Phone Patricia Bolaños MD Primary Care Provider [phone] Reason for Visit * Reason Comments Med Refill Encounter Details Date Type Department Care Team ([facility] st Contact Info) Description 06/02/2025 Refill [facility] MEDICINE [address] [place] [address] Patricia Bolaños MD [address] [place] [address] Attention deficit hyperactivity disorder (ADHD), predominantly inattentive [...] documented as of this encounter Care Teams Grease Press Helper Relationship Specialty Start Date End Date Patricia Bolaños MD [address] [place] [address] PCP - General Family Medicine 06/06/13 documented as of this encounter
--- OUTSIDE RECORDS SUMMARY | 2025-07-22 15:39 | XMS_ITS | Encounter Summary ---
Author Organization [employer] Address [address] [facility] 7 [place] [address] Care Team Providers Care Supervisor Home Energy Consultant Name Role Phone Patricia Bolaños MD Primary Care Provider [phone] Reason for Visit * Reason Comments Med Refill Encounter Details Date Type Department Care Team ([facility] st Contact Info) Description 12/05/2023 Refill [facility] MEDICINE [address] [place] [address] Patricia Bolaños MD 505 [place] [address] Attention deficit hyperactivity disorder (ADHD), predominantly inattentive [...] documented as of this encounter Care Teams Supervisor Home Energy Consultant Relationship Specialty Start Date End Date Patricia Bolaños MD [address] [place] [address] PCP - General Family Medicine 06/06/13 documented as of this encounter
--- OUTSIDE RECORDS SUMMARY | 2025-07-22 15:39 | XMS_ITS | Encounter Summary ---
Author Organization [employer] Address [address] [facility] 7 [place] [address] Care Team Providers Care Power Supply Engineer Name Role Phone Patricia Bolaños MD Primary Care Provider [phone] Reason for Visit * Reason Comments Med Refill Encounter Details Date Type Department Care Team ([facility] st Contact Info) Description 12/03/[address] [facility] MEDICINE [address] [place] [address] Patricia Bolaños MD [address] [place] [address] Attention deficit hyperactivity disorder (ADHD), predominantly inattentive [...] documented as of this encounter Care Teams Power Supply Engineer Relationship Specialty Start Date End Date Patricia Bolaños MD [address] [place] [address] PCP - General Family Medicine 06/06/13 documented as of this encounter
== END 2025-07-22 14:18 | disposition home or self-care (01) ==
LOC: HO.HBST 12:59
PROVIDERS: PCP Pediatrics; Visit Provider Counselor Mental Health
DX: F90.9 Attention-deficit hyperactivity disorder, unspecified type (principal); Z71.89 Other specified counseling
CPT/HCPCS: 90837

== ENCOUNTER 2025-08-04 10:10 | Outpatient (REF) | payer MEDICAID, SELFPAY ==
--- NOTE | ~2025-08-04 | US_ITS ---
EXAMINATION: US COMPLETE ABDOMEN WITH LIVER ELASTOGRAPHY CLINICAL INFORMATION: Obesity COMPARISON: None available. TECHNIQUE: Real-time imaging of the abdominal viscera. Noninvasive ultrasound liver fibrosis assessment is performed using Siemens point quantification shear wave elastography (pSWE) with a C5-2 MHz transducer. Multiple elastography samples are obtained. FINDINGS: PANCREAS: The visualized pancreatic head and body are normal in appearance. The remainder of the pancreas is obscured from visualization by the overlying bowel gas. ABDOMINAL AORTA: No aortic aneurysm is seen. INFERIOR VENA CAVA: Visualized portions are normal. LIVER: The liver demonstrates normal size, contour and diffusely increased hepatic echogenicity. No focal lesion or intrahepatic biliary duct dilatation. The right lobe measures 13.9 cm in length. The left lobe measures 9.1 cm in length. Portal flow is towards the liver (hepatopetal). Shear wave liver elastography median stiffness is 1.55 m/s (reference: normal median stiffness is 1.3 m/s or less). IQR/median stiffness to assess sampling precision is 0.15 (reference: good quality data set is IQR/median stiffness of 0.30 or less). This represents a quality data set. GALLBLADDER: The gallbladder is physiologically distended without evidence of stones, sludge, polyps, wall thickening or pericholecystic fluid. COMMON BILE DUCT: Normal in caliber measuring 0.3 cm in diameter. RIGHT KIDNEY: No hydronephrosis. No renal calculi or focal parenchymal lesions. The kidney measures 10.1 cm in maximum dimension. LEFT KIDNEY: No hydronephrosis. No renal calculi or focal parenchymal lesions. The kidney measures 10.3 cm in maximum dimension. SPLEEN: Unremarkable. The spleen measures 9.9 cm in maximum dimension. FREE FLUID: None seen. US/US abdomen comp w elastography IMPRESSION: 1. Mildly diffusely increased hepatic echogenicity in keeping with steatosis. No focal suspicious hepatic lesion. 2. Liver elastography: In the absence of other known clinical signs, measurements rule out compensated advanced chronic liver disease. If there are known clinical signs, further testing may be needed for confirmation. 3. The remainder the examination is normal. REFERENCE: Society of Radiologists in Ultrasound Liver Stiffness Thresholds (2020): LIVER STIFFNESS THRESHOLDS: *Liver Stiffness equal or less than 1.3 m/s: High probability of being normal. *Liver Stiffness less than 1.7 m/s: In the absence of other known clinical signs, rules out compensated advanced chronic liver disease. *Liver Stiffness 1.7-2.1 m/s: Suggestive of compensated advanced chronic liver disease but need further test for confirmation. *Liver Stiffness over 2.1 m/s: Rules in compensated advanced chronic liver disease. *Liver Stiffness over 2.4 m/s: Suggestive of clinically significant portal hypertension. QUALITY OF DATA SET: *IQR/Median value equal or less than 0.30 implies a quality data set. *IQR/Median value over 0.30 implies a poor quality data set. SIGNIFICANT CHANGE FROM PRIOR EXAM: Significant change if liver stiffness measurement is 10% or greater from prior exam. OTHER CONSIDERATIONS: The stage of liver fibrosis may be overestimated in the setting of acute hepatitis, liver inflammation, elevated liver function tests, hepatic vascular congestion, obstructive cholestasis, non-fasting state, and infiltrative diseases such as amyloidosis and lymphoma. In some patients with NAFLD, the liver stiffness thresholds for compensated advanced chronic liver disease may be lower. In causes other than viral hepatitis and NAFLD, liver stiffness thresholds are not well established. Electronically signed by: Roque Da Silva MD 08/04/2025 01:04 PM [facility]
--- NOTE | ~2025-08-04 | FL_ITS ---
EXAMINATION: XR FLUOROSCOPY UPPER GI WITH AIR CLINICAL INFORMATION: Morbid obesity COMPARISON: None available. TECHNIQUE: Patient ingested barium liquid of varying consistency, with effervescent granules. FINDINGS: Esophagus demonstrates normal distention and motility. No evidence of stricture, mass or mucosal lesion. Stomach demonstrates normal distention. No mass or mucosal lesions are seen. There is normal passage of the barium through the stomach into the proximal small bowel. No significant hiatal hernia is seen. There is severe spontaneous gastroesophageal reflux seen in the supine position. FLUOROSCOPY TIME: 30 seconds DOSE AREA PRODUCT: 194 uGy-m2 (microgray-meter squared) FL/FL upper GI w air IMPRESSION: Severe gastroesophageal reflux in the supine position. Electronically signed by: Otoniel Henriquez MD 08/05/2025 10:52 AM [facility]
--- OUTSIDE RECORDS SUMMARY | 2025-08-04 12:24 | XMS_ITS | Encounter Summary ---
Author Organization [employer] Address [address] [place] [address] 7 [place] [address] Care Team Providers Care Manager Architectural Name Role Phone Patricia Bolaños MD Primary Care Provider [phone] Reason for Visit * Reason Onset Date Comments Med Refill 10/04/2023 Encounter Details Date Type Department Care Team ([facility] st Contact Info) Description 10/04/2023 Telephone [facility] MED & PEDS [address] [place], [place] [phone] Patricia Bolaños MD [address] [place] [address] Med Refill Social History Tobacco Use Types [...] hr capsule To be sent to: [facility] - [place], [place] - [address] [facility] documented in this encounter Plan of Treatment Not on file documented as of this encounter Visit Diagnoses Not on filedocumented in this encounter Additional Health Concerns Assessment Noted Time PHQ-9 Depression Total Score: 17 023 11:26 AM EDT documented as of this encounter Care Teams Manager Architectural Relationship Specialty Start Date End Date Patricia Bolaños MD [address] [place] [address] PCP - General Family Medicine 06/06/13 documented as of this encounter
--- OUTSIDE RECORDS SUMMARY | 2025-08-04 12:24 | XMS_ITS | Clinical Summary ---
Author Organization [employer] Address [address] [facility] 7t [place] [address] Care Team Providers Care Chair Upholsterer Name Role Phone Patricia Bolaños MD Primary Care Provider [phone] Allergies Active Allergy Reactions Criticality Noted Date Comments Oxcarbazepine Hives High 07/02/2013 Topiramate Hives 12/22/2015 Medications * This document contains information received from the source organization and may not represent a complete record from that organization. ibuprofen 600 MG tablet Take 1 tablet by mouth every 6 (six) hours if needed for pain. 01/20/20 17 Active ergocalciferol (Vitamin D2) 1.25 MG (75336 UT) capsule Take 1 capsule (1.25 mg) by mouth 1 (one) time per week. 12 capsule 02/06/20 23 Active Camrese 0.15-0.03 &0.01 MG tablet tablet TAKE 1 TABLET BY MOUTH EVERY DAY 91 tablet 3 05/08/20 23 Active Bacitracin-Polym yxin B (FT Double Antibiotic) 500-39825 UNIT/GM ointment APPLY TOPICALLY TWICE DAILY 28.4 [...] EVERY DAY IN THE MORNING 60 capsule 5 5:49 PM EST 07/27/20 Active amphetamine-dext roamphetamine XR (Adderall XR) 25 MG 24 hr capsuleIndicatio ns:Attention deficit hyperactivity disorder (ADHD), predominantly inattentive type TAKE 2 CAPSULES BY MOUTH EVERY DAY IN THE MORNING 60 capsule 06/28/20 25 025 Discontinued(R eorder (will not trigger [...] Encounters Date Type Department Care Team Description 07/27/2025 Refill [facility] [address] [place] [address] Patricia Bolaños MD Attention deficit hyperactivity disorder (ADHD), predominantly inattentive type 06/26/2025 Refill [facility] [address] [place] [address] Patricia Bolaños MD Attention deficit hyperactivity disorder (ADHD), predominantly inattentive type 06/04/2025 Orders Only GENERIC EXTERNAL DATA DEPARTMENT Provider, Generic External Data 06/02/2025 Refill [facility] [address] [place] [address] Patricia Bolaños MD Attention deficit hyperactivity disorder (ADHD), predominantly inattentive type 06/01/2025 Refill [facility] [address] [place] [address] Patricia Bolaños MD Attention deficit hyperactivity disorder [...] 1:44 PM EDT 07/03/2025 8:28 AM EDT [facility] - 07/08/2025 11:28 AM EDT ----- ------- Name: Danica Acosta Age/Sex: 19/F : 2005 Unit#: [id number] Attend Dr: Tereso Gay MD Re07/02/25 Status: [facility] Location: [facility] Disch: ----- ------- SPEC : [id number] RECD: 07/03/25 STATUS: YEISON ZAPIEN NUM: [id number] DIEGO: 07/02/251344 [facility] DR: Tereso Gay MD ENTERED: 07/03/25 TYPE: Surgical OTHR DR: Patricia Bolaños MD [...] Name: Danica Acosta Age/Sex: 19/F : 2005 [id number] Unit#: [id number] Attend Dr: Tereso Gay MD Re07/02/25 Status: [facility] Location: [facility] Disch: ----- ------- SPEC : [id number] RECD: 07/03/25 STATUS: YEISON ZAPIEN NUM: [id number] DIEGO: 07/02/25 [facility] DR: Tereso Gay MD ENTERED: 07/03/25 [...] developed and their performance characteristics determined by [facility]. They have not been cleared or approved by the U.S. Food and Drug Administration (FDA). However, the FDA has determined that such clearance or approval is not necessary. This laboratory is certified under the Clinical Laboratory Improvement Amendments of 1988 (CLIA) as qualified to perform high complexity clinical laboratory testing. Copies To: Patricia Bolaños MD [address] [address] Tereso Gay MD [facility] [address] [place] [address] ----- ------- Signed (signature on file) Monique Crews 07/08/25 1128 ----- ------- END OF REPORT [employer] External Data Provider LAB BLOOD ORDERAB LES Final Result Performing Organization Address [facility] de Phone Number [facility] [address] [place] [address] [phone] * HCG, Qualitative, Urine (07/02/2025 12:00 PM EDT) Pathologist [facility] Urine NEGATIVE NEGATIVE [facility] Comment:This test was develo ped to detect early . Falsenegative results may occur after the 5th - 7th week ofpregnancy when using this test method. If clinicallyindicated, consider a serum hCG. 07/02/2025 12:0 0 PM EDT 07/02/2025 12:09 PM EDT Generic External Data Provider LAB URINE ORDERAB LES Final Result Performing Organization Address [facility]/ZIP Co de Phone Number [facility] [address] [place] [phone] * XR Chest 2 Views (06/04/2025 10:15 AM EDT) Anatomical Region Laterality Modality Chest Radiographic Sherita ging 06/04/2025 10:1 5 AM EDT Narrative 06/04/2025 10:28 AM EDT [address] [address] XRay Report Signed Patient: Danica Acosta MR#: [id number] 0636 : 2005 Acct:[id number] Age/Sex: 19 / F ADM Date: 06/04/25 Loc: [facility] Attending Dr: Tereso Gay MD Ordering Physician: Tereso Gay MD Date of Service: 06/04/25 Procedure(s): XR chest 2V Accession Number(s): [id number] cc: Patricia Bolaños MD; Tereso Gay MD [...] 06/04/25 1026 DD/ 1015 TD/TT: 06/04/25 1021 Rerecording Mixer: Procedure Note Donotuseinterpreter, Image - 06/04/[address] [address] XRay Report Signed Patient: Danica AcostaMR#: [id number] 0636 : 2005Acct:[id number] Age/Sex: 19 / FADM Date: 06/04/25 Loc: [facility] Attending Dr: Tereso Gay MD Ordering Physician: Tereso Gay MD Date of Service: 06/04/25 Procedure(s): XR chest 2V Accession Number(s): [id number] cc: Patricia Bolaños MD; Tereso Gay MD [...] Ronal Ribera MD 06/04/2025 10:26 AM EDT RP Dictated By: Ronal Ribera MD Signed By: <Electronically signed by Ronal Ribera MD in OV> 06/04/25 1026 DD/ 1015 TD/TT: 06/04/25 1021 Rerecording Mixer: [facility] External Provider IMG XR PROCEDURES Final Result * (ABNORMAL) Vitamin D, 25-Hydroxy, Total, Immunoassay (06/04/2025 9:46 AM EDT) Vitamin D 25-OH Total 14.6(L) >30 ng/mL [facility] Comment: Health Based Reference Values*< 20 ng/mL Pqiteqblw13-39 ng/mL Insufficient> 30 ng/mL Sufficient*Tobi REYNOLDS. N [...] ORDERAB LES Final Result Performing Organization Address [facility]/ZIP Co de Phone Number [facility] [address] [place] [phone] * Vitamin B12 (Cobalamin) and Folate Panel, Serum (06/04/2025 9:46 AM EDT) Vitamin B12 399 200 - 900 pg/mL [facility] Comment:NORMAL 200-900 PG/ML INDETERMINATE 160-199 PG/ML DEFICIENT < 160 PG/ML Folate 10.1 > or = 4.0 ng/mL [facility] Comment:Reference Values:> o r = 4.0 ng/mL< 4.0 ng/mL suggests folate deficiency Methotrexate, aminopterin and folinic acid(leucovorin) are chemotherapeutic agents whose molecularstructures are similar to folate; therefore, the Architectfolate assay cannot be used for patients using these drugs. 06/04/2025 9:46 AM EDT 06/04/2025 9:46 AM EDT us Generic External Data Provider LAB BLOOD ORDERAB LES Final Result Performing Organization Address [facility]/ZIP Co de Phone Number [facility] [address] [place] [phone] * TSH W/Reflex to FT4 (06/04/2025 9:46 AM EDT) TSH reflex Free T4 2.44 0.32 - 4.0 uIU/mL [facility] Blood Venous blood specimen / Unknown 06/04/2025 9:46 AM EDT 06/04/2025 9:46 AM EDT Austin Atkinson MD LAB BLOOD ORDERABL ES Final Result [facility] [address] [place] [address] [phone] * (ABNORMAL) CBC auto differential (06/04/2025 9:46 AM EDT) White Blood Count 6.1 4.8 - 10.8 X10*3/uL [facility] Red Blood Count 5.09 4.20 - 5.50 X10*6/uL [facility] Hemoglobin 12.5 12.0 - 16.0 g/dl [facility] Hematocrit 39.3 37.0 - 47.0 % [facility] Mean Corpuscular Volume 77.2(L) 80.0 - 98.0 fL [facility] Mean Corpuscular Hemoglobin 24.6(L) 27.0 - 33.0 pg [facility] Mean Corpuscular HGB Conc 31.8 31.0 - 35.0 g/dl [facility] Red Cell Distribution Width 13.6 11.0 - 16.0 % [facility] Platelet Count 359 160 - 400 X10*3/uL [facility] Mean Platelet Volume 9.7 9.4 - 12.3 fL [facility] Neutrophils Percent Auto 58.9 45 - 73 % [facility] Imm Gran Pct Auto 0.3 0.0 - 0.4 % [facility] Lymphocytes Percent Auto 31.0 20 - 40 % [facility] Monocytes Percent Auto 7.8 2 - 11 % [facility] Eosinophils Percent Auto 1.7 0 - 4 % [facility] Basophils Percent Auto 0.3 0 - 2 % [facility] NRBC Pct Auto 0.0 0.0 - 0.2 /100WBC [facility] Neutrophils Absolute Auto 3.6 2.0 - 8.3 x10*3/uL [facility] Imm Gran Abs Auto 0.02 0.00 - 0.03 X10*3/uL [facility] Lymphocytes Absolute Auto 1.9 1.2 - 4.9 X10*3/uL [facility] Monocytes Absolute Auto 0.5 0.1 - 1.2 X10*3/uL [facility] Eosinophils Absolute Auto 0.1 0.0 - 0.4 X10*3/uL [facility] Basophils Absolute Auto 0.0 0.0 - 0.2 X10*3/uL [facility] NRBC Abs Auto 0.000 0.0 - 0.012 X10*3/uL [facility] 06/04/2025 9:46 AM EDT 06/04/2025 9:46 AM EDT us Generic External Data Provider LAB BLOOD ORDERAB LES Final Result Performing Organization Address [facility] Co de Phone Number [facility] [address] [place] [phone] * Iron And Total Iron Binding Capacity (06/04/2025 9:46 AM EDT) Iron 47 30 - 160 mcg/dL [facility] Total Iron Binding Capacity 256 228 - 428 mcg/dL [facility] Percent Iron Saturation 18 15 - 50 % [facility] Unsaturated Iron Binding 209 ug/dL [facility] 06/04/2025 9:46 AM EDT 06/04/2025 9:46 AM EDT us Generic External Data Provider LAB BLOOD ORDERAB LES Final Result Performing Organization Address City/[facility]/ZIP Co de Phone Number [facility] [address] [place] [phone] * Insulin (06/04/2025 9:46 AM EDT) Insulin 17 2 - 29 uU/mL [facility] Comment:This test was perfor med [...] ORDERAB LES Final Result Performing Organization Address [facility] Co de Phone Number [facility] [address] [place] [phone] * Zinc (06/04/2025 9:46 AM EDT) Zinc 70 60 - 130 mcg/dL [facility] Comment:This test was develo ped and its analytical performancecharacteristics have been determined by [employer] [place], [place]. It hasnot been cleared or approved by the U.S. Food and DrugAdministration. This assay has been validated pursuantto the CLIA regulations and is used for clinicalpurposes.THIS TEST WAS PERFORMED AT:Home-Account/[facility] [place] [address]EUUUEVJMAY ROJAS MD,PHD 06/04/2025 9:46 AM EDT 06/04/2025 9:46 AM EDT us Generic External Data Provider LAB BLOOD ORDERAB LES Final Result Performing Organization Address [facility]/ZIP Co de Phone Number [facility] [address] [place] [phone] * (ABNORMAL) Vitamin A (06/04/2025 9:46 AM EDT) Pathologist [facility] Vitamin A (Retinol) 24(A) 38 - 98 mcg/dL [facility] Comment:Vitamin supplementat ion within 24 hours prior toblood draw may affect the accuracy of the results.This test was developed and its analytical performancecharacteristics have been determined by [employer] [place]. It hasnot been cleared or approved by the U.S. Food and DrugAdministration. This assay has been validated pursuantto the CLIA regulations and is used for clinicalpurposes.THIS TEST WAS PERFORMED AT:[facility]Account[facility] [place] [address]BVNWKGOMAY ROJAS MD,PHD 06/04/2025 9:46 AM EDT 06/04/2025 9:46 AM EDT Generic External Data Provider LAB BLOOD ORDERAB LES Final Result Performing Organization Address City/[facility]/ZIP Co de Phone Number [facility] [address] [place] [phone] * (ABNORMAL) C-reactive Protein (06/04/2025 9:46 AM EDT) [facility] C Reactive Protein 3.58(H) < or = 0.50 mg/dL [facility] 06/04/2025 9:46 AM EDT 06/04/2025 9:46 AM EDT Generic External Data Provider LAB BLOOD ORDERAB LES Final Result Performing Organization Address City/[facility]/ZIP Co de Phone Number [facility] [address] [place] [phone] * Vitamin B1 (06/04/2025 9:46 AM EDT) [facility] Vitamin B1 10 8 - 30 nmol/L [facility] Comment:Vitamin supplementat ion within 24 hours prior toblood draw may affect the accuracy of the results.This test was developed and its analytical performancecharacteristics have been determined by [employer] [place]. It hasnot been cleared or approved by the U.S. Food and DrugAdministration. This assay has been validated pursuantto the CLIA regulations and is used for clinicalpurposes.THIS TEST WAS PERFORMED AT:[facility]-Account[facility] [place] [address]WHAIVAXMAY ROJAS MD,PHD 06/04/2025 9:46 AM EDT 06/04/2025 9:46 AM EDT us Generic External Data Provider LAB BLOOD ORDERAB LES Final Result Performing Organization Address [facility]/ZIP Co de Phone Number [facility] [address] [place] [phone] * Hemoglobin A1c (06/04/2025 9:46 AM EDT) Hemoglobin A1c 5.3 <6.0 % [facility] Comment:Hemoglobin A1C Refer ence Range Adults: 4.8 - 6.0 % Non diabetic: < 6.0 % Goal: < 7.0 %Additional Action Suggested: > 8.0 %Note: Hemoglobin A1c results are invalid for patients with abnormal amounts of HbF. Blood transfusions may impact the HbA1c concentration in the patient sample. Estimated Average Glucose 105 mg/dL [facility] Comment:eAG = Estimated ave rage glucose which is %A1C expressed asaverage glucose, using the formula of the L5R-OtyglfsLeyfjqk Glucose study (ADAG), Diabetes Care, Vol.31,#8,Apr. 2007 Blood Venous blood specimen / Unknown 06/04/2025 9:46 AM EDT 06/04/2025 9:46 AM EDT us Austin Atkinson MD LAB BLOOD ORDERABL ES Final Result Performing Organization Address [facility]/ZIP Co de Phone Number [facility] [address] [place] [phone] * Ferritin (06/04/2025 9:46 AM EDT) Ferritin 87 10 - 122 ng/mL [facility] 06/04/2025 9:46 AM EDT 06/04/2025 9:46 AM EDT us Generic External Data Provider LAB BLOOD ORDERAB LES Final Result Performing Organization Address [facility]/ZIP Co de Phone Number [facility] [address] [place] [phone] [phone] * (ABNORMAL) Lipid Panel, Standard (06/04/2025 9:46 AM EDT) Pathologist [facility] Triglycerides 96 <150 mg/dL [facility] Comment:Desirable Triglyceri de: less than 150 mg/dLBorderline High Triglyceride 150-199 mg/dLHigh Triglyceride: 200-499 mg/dLVery High Triglyceride: greater than or equal to 5OO mg/dL Cholesterol 168 <200 mg/dL [facility] Comment:Desirable Cholestero l: less than 200 mg/dLBorderline High Cholesterol: 200-239 mg/dLHigh Cholesterol: greater than 239 mg/dL LDL Cholesterol Calculated 122(H) <100 mg/dL [facility] Comment:Desirable LDL: less than 100 mg/dLNear Optimal/Above Optimal LDL: 110- 129 mg/dLBorderline High LDL: 130-159 mg/dLHigh LDL: 160-189 mg/dLVery High LDL: greater than or equal to 190 mg/dL HDL Cholesterol 27(L) >40 mg/dL [facility] Comment:Desirable HDL: great er than 40 mg/dL Note: This HDL assay may give artificially low results in patients with liver disease. 06/04/2025 9:46 AM EDT 06/04/2025 9:46 AM EDT us Generic External Data Provider LAB BLOOD ORDERAB LES Final Result Performing Organization Address City/[facility]/ZIP Co de Phone Number [facility] [address] [place] [phone] * (ABNORMAL) Comprehensive Metabolic Panel (06/04/2025 9:46 AM EDT) Sodium 142 135 - 145 mmol/L [facility] Potassium 3.8 3.3 - 5.1 mmol/L [facility] Chloride 107 96 - 108 mmol/L [facility] Carbon Dioxide 28 22 - 29 mmol/L [facility] Anion Gap 11(L) 12 - 20 [facility] Urea Nitrogen (BUN) 13 9 - 16 mg/dL [facility] Creatinine, Serum 0.66 0.5 - 1.4 mg/dL [facility] Estimated Glomerular Filt Rate >60 [facility] Comment:Chronic Kidney Disea se: Estimated GFR < 60 mL/min/1.20q3Uszkga Kidney Disease: Estimated GFR < 15 mL/min/1.73m2 Glucose 94 60 - 115 mg/dL [facility] Calcium 9.4 8.4 - 10.2 mg/dL [facility] Bilirubin, Total 0.4 0.0 - 1.0 mg/dL [facility] Aspartate Amino Transferase 18 5 - 31 U/L [facility] Alanine Aminotransferase 22 0 - 31 U/L [facility] Total Protein 7.9 6.5 - 8.0 g/dL [facility] Albumin Level 4.4 3.5 - 5.0 g/dL [facility] Alkaline Phosphatase 61 39 - 117 U/L [facility] 06/04/2025 9:46 AM EDT 06/04/2025 9:46 AM EDT us Generic External Data Provider LAB BLOOD ORDERAB LES Final Result [facility] [address] [place] [phone] from Last 3 Months Insurance [facility] C3 Care Teams Chair Upholsterer Relationship Specialty Start Date End Date Patricia Bolaños MD [address] [place] [address] [phone] PCP - General Family Medicine 06/06/13
--- OUTSIDE RECORDS SUMMARY | 2025-08-04 12:24 | XMS_ITS | Encounter Summary ---
Author Organization [employer] Address [address] [facility] 7 [place] [address] Care Team Providers Care Traveling Engineer Name Role Phone Patricia Bolaños MD Primary Care Provider [phone] Reason for Visit * Reason Onset Date Comments Med Refill 12/31/2024 Encounter Details Date Type Department Care Team ([facility] st Contact Info) Description 12/31/2024 Telephone [facility] [address] [place] [address] Patricia Bolaños MD [address] [place], [place] [phone] Med Refill Social History Tobacco Use Types [...] 12/31/2024 10:45 AM EDT Medication sent to [facility] on 12/30/24. * Telephone Encounter - Quan Batista - 12/31/2024 10:40 AM EDT TC from pt requesting medication refill. Medications needing refill : amphetamine-dextroamphetamine XR (Adderall XR) 25 MG 24 hr capsule To be sent to: [facility] - [place], [place] - [address] [facility] documented in this encounter Plan of Treatment Not on file documented as of this encounter Visit Diagnoses Not on filedocumented in this encounter Additional Health Concerns Assessment Noted Time PHQ-9 Depression Total Score: 17 023 11:26 AM EDT documented as of this encounter Care Teams Traveling Engineer Relationship Specialty Start Date End Date Patricia Bolaños MD [address] [place] [address] PCP - General Family Medicine 06/06/13 documented as of this encounter
--- OUTSIDE RECORDS SUMMARY | 2025-08-04 12:24 | XMS_ITS | Encounter Summary ---
Author Organization [employer] Address [address] [place] [address] Care Team Providers Care Prestressed Concrete Laborer Name Role Phone Patricia Bolaños MD Primary Care Provider [phone] Reason for Visit * Reason Comments Med Refill Encounter Details Date Type Department Care Team ([facility] st Contact Info) Description 06/05/2023 Refill [facility] [address] [place], [place] [phone] Patricia Bolaños MD [address] [place], [place] [phone] Attention deficit hyperactivity disorder (ADHD), predominantly inattentive [...] documented as of this encounter Care Teams Prestressed Concrete Laborer Relationship Specialty Start Date End Date Patricia Bolaños MD [address] [place] [phone] PCP - General Family Medicine 06/06/13 documented as of this encounter
--- OUTSIDE RECORDS SUMMARY | 2025-08-04 12:24 | XMS_ITS | Encounter Summary ---
Author Organization [employer] Address [address] [place] [address] Care Team Providers Care Incinerator Plant General Supervisor Name Role Phone Patricia Bolaños MD Primary Care Provider [phone] Reason for Visit * Reason Onset Date Comments Med Refill 10/20/2022 Encounter Details Date Type Department Care Team ([facility] st Contact Info) Description 10/20/2022 Telephone [facility] [address] [place], [place] [phone] Patricia Bolaños MD [address] [place] [address] Med Refill Social History Tobacco Use Types [...] on filedocumented in this encounter Care Teams Incinerator Plant General Supervisor Relationship Specialty Start Date End Date Patricia Bolaños MD [address] [place] [phone] PCP - General Family Medicine 06/06/13 documented as of this encounter
--- OUTSIDE RECORDS SUMMARY | 2025-08-04 12:24 | XMS_ITS | Encounter Summary ---
Author Organization [employer] Address [address] [place] [address] 7 [place] [address] Care Team Providers Care Lead Front End Developer Name Role Phone Patricia Bolaños MD Primary Care Provider [phone] Encounter Details Date Type Department Care Team ([facility] st Contact Info) Description 06/12/2024 Orders Only [facility] [address] [place], [place] [phone] Patricia Bolaños MD [address] [place] [address] Social History Tobacco Use Types Packs/Day Years [...] documented as of this encounter Care Teams Lead Front End Developer Relationship Specialty Start Date End Date Patricia Bolaños MD [address] [place] [address] PCP - General Family Medicine 06/06/13 documented as of this encounter
--- OUTSIDE RECORDS SUMMARY | 2025-08-04 12:24 | XMS_ITS | Encounter Summary ---
Author Organization [employer] Address [address] [facility] 7 [place] [address] Care Team Providers Care Weight Shifter Name Role Phone Patricia Bolaños MD Primary Care Provider [phone] Reason for Visit * Reason Onset Date Comments Med Refill 04/01/2024 Encounter Details Date Type Department Care Team ([facility] st Contact Info) Description 04/01/2024 Telephone [facility] [address] [place] [address] Patricia Bolaños MD [address] [place], [place] [phone] Med Refill Social History Tobacco Use Types [...] 24 hr capsule To be sent to: [facility] - [place], [place] - [address] [facility] documented in this encounter Plan of Treatment Not on file documented as of this encounter Visit Diagnoses Not on filedocumented in this encounter Additional Health Concerns Assessment Noted Time PHQ-9 Depression Total Score: 17 023 11:26 AM EDT documented as of this encounter Care Teams Weight Shifter Relationship Specialty Start Date End Date Patricia Bolaños MD [address] [place] [address] PCP - General Family Medicine 06/06/13 documented as of this encounter
--- OUTSIDE RECORDS SUMMARY | 2025-08-04 12:24 | XMS_ITS | Encounter Summary ---
Author Organization [employer] Address [address] [facility] 7 [place] [address] Care Team Providers Care Senior Shipping Clerk Name Role Phone Patricia Bolaños MD Primary Care Provider [phone] Reason for Visit * Reason Comments Med Refill Encounter Details Date Type Department Care Team ([facility] st Contact Info) Description 12/03/2023 Refill [facility] [address] [place] [address] Patricia Bolaños MD [address] [place] [address] Attention deficit hyperactivity disorder (ADHD), predominantly inattentive [...] documented as of this encounter Care Teams Senior Shipping Clerk Relationship Specialty Start Date End Date Patricia Bolaños MD [address] [place] [address] PCP - General Family Medicine 06/06/13 documented as of this encounter
--- OUTSIDE RECORDS SUMMARY | 2025-08-04 12:24 | XMS_ITS | Encounter Summary ---
Author Organization [employer] Address [address] [facility] 7 [place] [address] Care Team Providers Care Thermit Welding Machine Operator Name Role Phone Patricia Bolaños MD Primary Care Provider [phone] Reason for Visit * Reason Comments Med Refill Encounter Details Date Type Department Care Team ([facility] st Contact Info) Description 12/05/2023 Refill [facility] [address] [place] [address] Patricia Bolaños MD [address] [place] [address] Attention deficit hyperactivity disorder (ADHD), predominantly inattentive [...] documented as of this encounter Care Teams Thermit Welding Machine Operator Relationship Specialty Start Date End Date Patricia Bolaños MD [address] [place] [address] PCP - General Family Medicine 06/06/13 documented as of this encounter
--- OUTSIDE RECORDS SUMMARY | 2025-08-04 12:24 | XMS_ITS | Encounter Summary ---
Author Organization [employer] Address [address] [place] [address] Care Team Providers Care Camp Coordinator Name Role Phone Patricia Bolaños MD Primary Care Provider [phone] Reason for Visit * Reason Comments Med Refill Encounter Details Date Type Department Care Team ([facility] st Contact Info) Description 12/22/2022 Refill [facility] [address] [place], [place] [phone] Patricia Bolaños MD [address] [place] [address] Attention deficit hyperactivity disorder (ADHD), predominantly inattentive [...] type documented in this encounter Care Teams Camp Coordinator Relationship Specialty Start Date End Date Patricia Bolaños MD [address] [place] [address] PCP - General Family Medicine 06/06/13 documented as of this encounter
--- OUTSIDE RECORDS SUMMARY | 2025-08-04 12:24 | XMS_ITS | Encounter Summary ---
Author Organization [employer] Address [address] [place] [address] 7 [place] [address] Care Team Providers Care Instrumentation Tech Name Role Phone Patricia Bolaños MD Primary Care Provider [phone] Reason for Visit * Reason Onset Date Comments Med Refill 09/04/2023 Encounter Details Date Type Department Care Team ([facility] Contact Info) Description 09/04/2023 Telephone [facility] [address] [place], [place] [phone] Patricia Bolaños MD [address] [place] [address] Med Refill Social History Tobacco Use Types [...] 24 hr capsule To be sent to: [facility] - [place], [place] - [address] [facility] documented in this encounter Plan of Treatment Not on file documented as of this encounter Visit Diagnoses Not on filedocumented in this encounter Additional Health Concerns Assessment Noted Time PHQ-9 Depression Total Score: 17 023 11:26 AM EDT documented as of this encounter Care Teams Instrumentation Tech Relationship Specialty Start Date End Date Patricia Bolaños MD [address] [place] [address] PCP - General Family Medicine 06/06/13 documented as of this encounter
--- OUTSIDE RECORDS SUMMARY | 2025-08-04 12:25 | XMS_ITS | Encounter Summary ---
Author Organization [employer] Address [address] [facility] 7 [place] [address] Care Team Providers Care Nail Professional Name Role Phone Patricia Bolaños MD Primary Care Provider [phone] Reason for Visit * Reason Comments Med Refill Encounter Details Date Type Department Care Team ([facility] st Contact Info) Description 06/02/2025 Refill [facility] [address] [place] [address] Patricia Bolaños MD [address] [place] [address] Attention deficit hyperactivity disorder (ADHD), predominantly inattentive [...] documented as of this encounter Care Teams Nail Professional Relationship Specialty Start Date End Date Patricia Bolaños MD [address] [place] [address] PCP - General Family Medicine 06/06/13 documented as of this encounter
--- OUTSIDE RECORDS SUMMARY | 2025-08-04 12:25 | XMS_ITS | Encounter Summary ---
Author Organization [employer] Address [address] [place] [address] 7 [place] [address] Care Team Providers Care Photo Lab Specialist Name Role Phone Patricia Bolaños MD Primary Care Provider [phone] Encounter Details Date Type Department Care Team ([facility] st Contact Info) Description 02/06/2023 Orders Only [facility] [address] [place], [place] [phone] Patricia Bolaños MD [address] [place] [address] Attention deficit hyperactivity disorder (ADHD), predominantly inattentive [...] documented as of this encounter Care Teams Photo Lab Specialist Relationship Specialty Start Date End Date Patricia Bolaños MD [address] [place] [address] PCP - General Family Medicine 06/06/13 documented as of this encounter
--- OUTSIDE RECORDS SUMMARY | 2025-08-04 12:25 | XMS_ITS | Encounter Summary ---
Author Organization [employer] Address [address] [facility] 7 [place] [address] Care Team Providers Care Conservation Technician Name Role Phone Patricia Bolaños MD Primary Care Provider [phone] Reason for Visit * Reason Comments Med Refill Encounter Details Date Type Department Care Team ([facility] st Contact Info) Description 12/30/2024 Refill [facility] [address] [place] [address] Patricia Bolaños MD [address] [place] [address] Attention deficit hyperactivity disorder (ADHD), predominantly inattentive [...] documented as of this encounter Care Teams Conservation Technician Relationship Specialty Start Date End Date Patricia Bolaños MD [address] [place] [address] PCP - General Family Medicine 06/06/13 documented as of this encounter
== END 2025-08-04 10:11 | disposition home or self-care (01) ==
LOC: HO.US 10:10
PROVIDERS: PCP Pediatrics; Visit Provider Surgery
DX: E66.01 Morbid (severe) obesity due to excess calories (principal)
CPT/HCPCS: 74246; 76700; 76981

== ENCOUNTER → 2025-08-04 10:14 | Outpatient (BNV) | payer MEDICAID, SELFPAY | PROVIDERS: PCP Pediatrics; Visit Provider Radiology Diagnostic Radiology | DX: K76.0 Fatty (change of) liver, not elsewhere classified (principal) | CPT/HCPCS: 76700 ==

== ENCOUNTER 2025-08-14 10:52 | Outpatient (AMB) | payer OTHER, SELFPAY ==
--- NOTE | 2025-08-14 11:05 | MHC.WMTHER ---
Intake Intake Visit Reasons: OV BH Intake Part 2 Allergies oxcarbazepine (From TRILEPTAL) Allergy (Unknown, Verified 05/22/25 16:59) HIVES PFSH Medical History Insomnia ADHD Morbid obesity Surgical History No history of previous surgery Family History Mother Diabetes Mental health disorder Father No problems noted. Social History Are you a primary career development engineer to a significant other at home: No Do you presently have visiting nurse or other home services: No Alcohol intake: current Alcohol intake frequency: does not drink Patient Tobacco Use Status: Never used Tobacco Second Hand Smoke Exposure: No Behavioral Health Assessment Weight Management Therapy Therapy Notes Details The patient is a 19-year-old female presenting for a second visit to finish behavioral health assessment as part of her preoperative evaluations for a surgical weight loss program. She was initially referred by her primary care provider. Presenting Concerns Referral Source WMP-Provider. Reason for referral Completion of behavioral health assessment as part of process for weight-loss surgery. Precipitating Event Obesity. Living Situation Current Living Situation Relative's/Guardian's [place] and Rent At risk of losing current housing? No Satisfied with current living situation? Yes Comments PT lives with her parents and 22 y/o sisters. Also 2 dogs and 2 cats. Food/Weight/Diet Expectations of change PT started the program at 330Lbs and most recent weight recorded on 08/10/2025 was 308Lbs The initial goal is to Goal to lose 10% of her weight before surgery, which is about 30lbs. Ultimate weight goal: 300lbs before surgery. Patient don't have a specific goal around weight target but wants to be healthier. PT is implementing the following: Current meal plan: 2 protein shakes, 2.5 protein bars and one meal per day. Exercise plan: Stationary bike, daily, not counting calories. Scale: yes Communication w/ provider: yes. History/Relationship with food The patient reports that, on some days, she would go all day without eating and then consume a large dinner, often followed by additional snacking at night. Prior to starting the program, she frequently ate large quantities of food even when not hungry, and often felt unsatisfied after dinner, leading her to have second helpings. She notes that she enjoys vegetables, which has supported her adherence to the meal plan. Her typical daily meals now primarily consist of chicken or fish with vegetables. Example of meals before starting the program: Breakfast: skip about 5 days at week and on the days she would eat it would be pancakes, leftovers food like a slice of pizza Lunch: skip about 5 days at week. If ate lunch would be a sandwich or have snacks like chips. Dinner: anytime in between 7-10pm. Pasta w/ chicken, rice/fish or steak. Snacks: chips. Drinks/Liquids: Coffee: 1 matcha latte w/ whole milk and sugar. soda: none. Juice: none besides regular Gatorade/Powerade 1 bottle couple times at week. Alcohol: none. energy drinks: none. History/Relationship with weight The patient reports being underweight during her younger years. She noticed an increase in appetite beginning in middle school, and by high school, she was considered obese, though not to the extent she is currently. She is unsure of her highest and lowest weights in recent years, as she does not regularly track her weight. History/Relationship with dieting Phentermine - not consistent. Binge Eating Do you frequently eat large amounts of food in short periods of time, not feeling physically hungry? Yes Do you feel out of control when you eat a large amount of food in a short period of time? Yes Do you eat large amounts of food rapidly and typically alone? No Night Eating Do you wake up at least once during the night to eat? No If you wake up in the night, do you find that it is necessary to eat something in order to fall back asleep? No Do you have little or no appetite in the morning and feel very hungry in the evening, often overeating between dinner and when you go to bed? Yes Social History Family history and relationship PT is single and have no children, she lives with her parents and older sister. PT is close to her family, but they're not close to any extended family. PT was in foster care at age 12 and younger. Parental/Familial data compiler obligations None. Developmental history and status Dyslexia and ADD, was on Adderall. She had an IEP during school. Continues taking Adderall. Social support Parents, sister. Community support None. Methodist/Spirituality None. Cultural/Ethnic information Mixed, dad Guatemalan and black, and mom mixed and while. Legal Involvement and History Current or historical involvement with the legal system? None reported. Education Highest grade completed 9th grade. Preferred learning style Auditory Currently enrolled in educational program? No Interested in further educational program? Yes (Wants to get Hi[employer].) Educational Interests/Skills Would like to get a job but first wants to work on control her Anxiety. Employment Employment Status Unemployed Wants help to find employment? No Meaningful activities Play videogaeKonnekt, working out. Financial Situation Describe current financial situation Occasional struggle Financial assistance? Food [place] and Disability Service Service? No Mental Health and Addiction Treatment Current/Past substance abuse? No Comments Alcohol: Haven't drink since January. Only on special occasions, 1-2 times at year. Cigarettes/Tobacco: None. Cannabis/Edibles: Edibles once in a while for sleep. Current/Past addictive behavior concerns? No Psychiatric history The patient is not currently engaged in counseling. She previously received mental health treatment until age 16, with diagnoses of depression, anxiety, sleep disturbances, and a history of ADD. She reports a prior psychiatric hospitalization during childhood but does not recall the specific age. The patient endorses ongoing memory difficulties. Her current psychiatric medications, prescribed by her primary care provider, Adderall 10 mg 1 at day and trazodone 50 mg at bedtime not using it as consistent. Medical and Physical Health Summary Additional Medical History not covered in history None aditional. Sexual History concerns None reported. Physical exam in the last year? No Pain Screening Current pain? No Pain in the last few months? Yes (Random knee pain.) Medications Is the patient compliant with medications? Yes Does the patient have Jama Guardian in place? Not applicable Does the patient use complimentary health approaches? No Questionnaires PHQ-9 Over the last 2 weeks, how often have you been bothered by any of the following problems? 1. Little interest or pleasure in doing things: more than half the days 2. Feeling down, depressed, or hopeless: several days 3. Trouble falling or staying asleep, or sleeping too much: nearly every day 4. Feeling tired or having little energy: nearly every day 5. Poor appetite or overeating: several days 6. Feeling bad about yourself - or that you are a failure or have let yourself or your family down: nearly every day 7. Trouble concentrating on things, such as reading the newspaper or watching television: more than half the days 8. Moving or speaking so slowly that other people could have noticed. Or the opposite - being so fidgety or restless that you have been moving around a lot more than usual: more than half the days 9. Thoughts that you would be better off or of hurting yourself in some way: several days Total score: 18 Depression Screening Interpretation: Positive Depression Screening Follow-up: Existing condition and Follow-up Visit Requested Depression Screening Done: Yes 34665 - PHQ-9 Billing: Yes Source: Developed by Drs. Ronal Bnaks, Hanna Mata, Domenico Nunes and colleagues, with an educational daisy from [employer]. Assessment & Plan Assessment & Plan (1) ADHD: Code(s): F90.9 - Attention-deficit hyperactivity disorder, unspecified type (2) Pre-bariatric surgery psychological evaluation: Code(s): Z71.89 - Other specified counseling Plan The patient has been cleared from a behavioral health perspective and is eligible to be submitted for insurance approval when ready. However, she currently does not have an established therapist and will require ongoing support both pre- and post-operatively, which she acknowledges and agrees with. Our team will assist her with sleep hygiene, mood management, behavioral activation, habit formation, consistency with meals and exercise, and strategies for long-term success. Next appointment is scheduled for 09/30/2025 at 12:00 PM, in person. C[place] [address] Psytx >53 mins Patient Type Established Diagnoses ADHD F90.9 Pre-bariatric surgery psychological evaluation Z71.89 Additional Codes PHQ-9 - 17914 - PHQ-9 Billing: Yes ([id number]) Time Spent (min) 60
== END 2025-08-14 12:23 | disposition home or self-care (01) ==
LOC: HO.HBST 10:52
PROVIDERS: PCP Pediatrics; Visit Provider Counselor Mental Health
DX: F90.9 Attention-deficit hyperactivity disorder, unspecified type (principal); Z71.89 Other specified counseling
CPT/HCPCS: 90837; 99499